=== PATIENT | female | born 1950 | race Caucasian/White ===

== ENCOUNTER → 2017-03-21 | Outpatient (CLI) | payer MEDICARE, OTHER ==
--- NOTE | 2017-03-21 09:56 | US ---
EXAMINATION TYPE: US thyroid st tissue head/neck DATE OF EXAM: 03/21/2017 8:49 AM COMPARISON: NONE CLINICAL HISTORY: E04.1 thyroid nodule. Difficult swallowing GLAND SIZE: Right Lobe: 4.8 x 1.4 x 1.9 cm cm Overall Parenchyma: heterogenous Left Lobe: 5.2 x 1.5 x 1.4 cm Overall Parenchyma: heterogeneous Isthmus Thickness: 0.4 cm NODULES RIGHT: # of nodules measured on right: 3 1. 0.7 X 0.5 x 0.9 cm mixed nodule at the lower pole with well-defined margins; . This nodule is w ider than tall and shows no intranodular vascularity. Prior size: no prior 2. 1.1 X 0.9 x 0.7 cm mixed nodule at the mid pole with well-defined margins; . This nodule is wide r than tall and shows no intranodular vascularity. Prior size: no prior 3. 0.9 X 0.4 x 0.7 cm mixed nodule at the upper pole with well-defined margins; . This nodule is wi crissy than tall and shows intranodular vascularity. Prior size: no prior LEFT: # of nodules measured on left: 1. 0.6 X 0.4 x 0.4 cm isoechoic solid nodule at the lower pole with well-defined margins; . This n odule is wider than tall and shows no intranodular vascularity. Prior size: no prior 2. 0.5 X 0.4 x 0.4 cm mixed nodule at the lower pole with well-defined margins; . This nodule is ro und and shows no intranodular vascularity. Prior size: no prior 3. 0.4 X 0.3 x 0.5 cm solid nodule at the upper pole with well-defined margins; . This nodule is ro und and shows intranodular vascularity. Prior size: no prior ISTHMUS: # of nodules measured in the isthmus: 0 Bilateral neck scanned, no evidence of lymphadenopathy. Thyroid gland is heterogeneous in appearance but within normal limits in size with scattered subcenti meter nodules noted bilaterally. IMPRESSION: Thyroid gland is normal in size with scattered subcentimeter nodules but no concerning greater than 1 cm solid or cystic nodules are evident bilaterally.
== END | disposition home or self-care (01) ==
LOC: RADUSWWP 08:20
PROVIDERS: ATTEND Family Medicine
DX: E04.2 Nontoxic multinodular goiter (principal)
CPT/HCPCS: 76536

== ENCOUNTER 2017-05-09 08:42 | Observation (INO) | payer MEDICARE, OTHER ==
[2017-05-09] MEDS ORDERED: ASPIRIN 81 MG CHEW PO STA (09:03)
[2017-05-09] MEDS ORDERED: LORazepam 1 MG TAB PO STA (09:03)
[2017-05-09] MEDS ORDERED: NITROGLYCERIN SL TABS 0.4 MG TAB SUBLINGUAL STA ×3 (09:03)
[2017-05-09] MEDS ORDERED: IPRATROPIUM-ALBUTEROL 3 ML NEB INHALATION STA (09:04)
--- NOTE | 2017-05-09 09:07 | ED ---
General Adult HPI - General Chief complaint: Chest Pain Stated complaint: Chest Pain Time Seen by Provider: 05/09/17 08:54 Source: patient, RN notes reviewed Mode of arrival: wheelchair Limitations: no limitations - History of Present Illness Initial comments: Patient is a pleasant 66-year-old female presenting to the emergency department complaining of chest discomfort. Onset of symptoms was a couple of weeks ago. Patient complains of sharp discomfort of her sternal region of the chest. There is some radiation towards the back. Patient does have associated dyspnea which is exertional. Patient states she is only able to walk about 10 feet before she gets short of breath. Patient did take her nebulizer without much improvement. Patient is a smoker. Patient does have some associated nausea and sweating. No history of similar symptoms previously. Patient admits that she is very anxious about being possible. Patient is receptive to receiving medication for anxiety. - Related Data Home Medications Medication Instructions Recorded Confirmed Albuterol Nebulized [Ventolin 2.5 mg INHALATION RT-QID PRN 05/09/17 05/09/17 Nebulized] Albuterol Sulfate [Proventil Hfa] 1 - 2 puff INHALATION RT-Q6H PRN 05/09/1711/13 Atorvastatin [Lipitor] 10 mg PO DAILY 05/09/17 05/09/17 Multivitamin/Iron/Folic Acid 1 tab PO DAILY 05/09/17 05/09/17 [Centrum Complete Multivit Tab] Omeprazole [PriLOSEC] 20 mg PO AC-BRKFST 05/09/17 05/09/17 Allergies Allergy/AdvReac Type Severity Reaction Status Date / Time No Known Allergies Allergy Verified 05/09/17 10:21 Review of Systems ROS Statement: Those systems with pertinent positive or pertinent negative responses have been documented in the HPI. ROS Other: All systems not noted in ROS Statement are negative. Constitutional: Denies: fever Eyes: Denies: eye pain ENT: Denies: ear pain Respiratory: Reports: dyspnea Cardiovascular: Reports: chest pain Endocrine: Reports: fatigue Gastrointestinal: Reports: nausea. Denies: abdominal pain Genitourinary: Denies: urgency Musculoskeletal: Denies: arthralgia Skin: Denies: rash Neurological: Denies: weakness Psychiatric: Reports: anxiety Past Medical History Past Medical History: COPD, GERD/Reflux, Hyperlipidemia History of Any Multi-Drug Resistant Organisms: None Reported Past Psychological History: No Psychological Hx Reported Smoking Status: Current every day smoker Past Alcohol Use History: None Reported Past Drug Use History: None Reported General Exam Limitations: no limitations General appearance: alert, in no apparent distress Head exam: Present: atraumatic Eye exam: Present: normal appearance, PERRL, EOMI ENT exam: Present: normal oropharynx Neck exam: Present: normal inspection Respiratory exam: Present: wheezes. Absent: chest wall tenderness Cardiovascular Exam: Present: regular rate, normal rhythm Expanded Peripheral pulses: 2+: Radial (R), Radial (L), Dorsalis Pedis (R), Dorsalis Pedis (L) GI/Abdominal exam: Present: soft. Absent: tenderness Extremities exam: Present: normal inspection. Absent: pedal edema, calf tenderness Neurological exam: Present: alert Psychiatric exam: Present: anxious Skin exam: Present: normal color Course Vital Signs 05/09/17 05/09/17 05/09/17 08:43 09:07 09:40 Temperature 97.8 F 98.5 F Pulse Rate 112 H 99 93 Respiratory 20 26 H Rate Blood Pressure 108/73 O2 Sat by Pulse 98 92 L Oximetry 05/09/17 05/09/17 05/09/17 09:48 09:52 10:08 Temperature 98.5 F 97.7 F Pulse Rate 88 99 90 Respiratory 16 16 Rate Blood Pressure 108/73 110/53 O2 Sat by Pulse 92 L 99 Oximetry 05/09/17 10:25 Temperature 97.9 F Pulse Rate 88 Respiratory 16 Rate Blood Pressure 111/62 O2 Sat by Pulse 97 Oximetry EKG Findings - EKG Comments: EKG Findings:: Normal sinus rhythm 96. AK 114. QRS 86. QT 370. QTc 467. Normal axis. Normal QRS. Inferior ST depression. Medical Decision Making - Medical Decision Making Patient reevaluated and resting comfortably in bed. Patient symptom-free. He should and family updated on results and plan. Case was discussed in detail with Dr. Santiago, who will admit his patient with cardiology consult. - Lab Data Result diagrams: 05/09/17 09:05 05/09/17 09:05 Lab Results 05/09/17 05/09/17 05/09/17 Range/Units 09:05 09:05 09:05 WBC 9.9 (3.8-10.6) k/uL RBC 4.61 (3.80-5.40) m/uL Hgb 15.5 (11.4-16.0) gm/dL Hct 47.8 H (34.0-46.0) % MCV 103.7 H (80.0-100.0) fL MCH 33.7 (25.0-35.0) pg MCHC 32.5 (31.0-37.0) g/dL RDW 12.5 (11.5-15.5) % Plt Count 304 (150-450) k/uL Neutrophils % 51 % Lymphocytes % 36 % Monocytes % 5 % Eosinophils % 3 % Basophils % 1 % Neutrophils # 5.1 (1.3-7.7) k/uL Lymphocytes # 3.5 (1.0-4.8) k/uL Monocytes # 0.5 (0-1.0) k/uL Eosinophils # 0.3 (0-0.7) k/uL Basophils # 0.1 (0-0.2) k/uL Macrocytosis Slight PT (9.0-12.0) sec INR (<1.1) APTT (22.0-30.0) sec D-Dimer (<0.60) mg/L FEU Sodium 141 (137-145) mmol/L Potassium 4.5 (3.5-5.1) mmol/L Chloride 103 (98-107) mmol/L Carbon Dioxide 25 (22-30) mmol/L Anion Gap 13 mmol/L BUN 8 (7-17) mg/dL Creatinine 0.56 (0.52-1.04) mg/dL Est GFR (MDRD) Af Amer >60 (>60 ml/min/1.73 sqM) Est GFR (MDRD) Non-Af >60 (>60 ml/min/1.73 sqM) Glucose 107 H (74-99) mg/dL Calcium 9.9 (8.4-10.2) mg/dL Magnesium 1.9 (1.6-2.3) mg/dL Total Bilirubin 0.7 (0.2-1.3) mg/dL AST 31 (14-36) U/L ALT 32 (9-52) U/L Alkaline Phosphatase 77 (38-126) U/L Total Creatine Kinase 54 (30-135) U/L CK-MB (CK-2) 1.1 (0.0-2.4) ng/mL CK-MB (CK-2) Rel Index 2.0 Troponin I <0.012 (0.000-0.034) ng/mL NT-Pro-B Natriuret Pep pg/mL Total Protein 8.2 (6.3-8.2) g/dL Albumin 4.8 (3.5-5.0) g/dL 05/09/17 05/09/17 Range/Units 09:05 09:05 WBC (3.8-10.6) k/uL RBC (3.80-5.40) m/uL Hgb (11.4-16.0) gm/dL Hct (34.0-46.0) % MCV (80.0-100.0) fL MCH (25.0-35.0) pg MCHC (31.0-37.0) g/dL RDW (11.5-15.5) % Plt Count (150-450) k/uL Neutrophils % % Lymphocytes % % Monocytes % % Eosinophils % % Basophils % % Neutrophils # (1.3-7.7) k/uL Lymphocytes # (1.0-4.8) k/uL Monocytes # (0-1.0) k/uL Eosinophils # (0-0.7) k/uL Basophils # (0-0.2) k/uL Macrocytosis PT 10.1 (9.0-12.0) sec INR 1.0 (<1.1) APTT 26.2 (22.0-30.0) sec D-Dimer 0.43 (<0.60) mg/L FEU Sodium (137-145) mmol/L Potassium (3.5-5.1) mmol/L Chloride (98-107) mmol/L Carbon Dioxide (22-30) mmol/L Anion Gap mmol/L BUN (7-17) mg/dL Creatinine (0.52-1.04) mg/dL Est GFR (MDRD) Af Amer (>60 ml/min/1.73 sqM) Est GFR (MDRD) Non-Af (>60 ml/min/1.73 sqM) Glucose (74-99) mg/dL Calcium (8.4-10.2) mg/dL Magnesium (1.6-2.3) mg/dL Total Bilirubin (0.2-1.3) mg/dL AST (14-36) U/L ALT (9-52) U/L Alkaline Phosphatase (38-126) U/L Total Creatine Kinase (30-135) U/L CK-MB (CK-2) (0.0-2.4) ng/mL CK-MB (CK-2) Rel Index Troponin I (0.000-0.034) ng/mL NT-Pro-B Natriuret Pep 69 pg/mL Total Protein (6.3-8.2) g/dL Albumin (3.5-5.0) g/dL - Radiology Data Radiology results: image reviewed (Chest x-ray shows no acute process) Critical Care Time Critical Care Time: Yes Total Critical Care Time: 31 Disposition Clinical Impression: Unstable angina pectoris Disposition: ADMITTED IP TO THIS [facility] Referrals: Federico Santiago DO [Primary Care Provider] - 1-2 days Decision Time: 11:35
--- NOTE | 2017-05-09 10:06 | XR ---
EXAMINATION TYPE: XR chest 2V DATE OF EXAM: 05/09/2017 COMPARISON: NONE TECHNIQUE: PA and lateral views submitted. HISTORY: Chest pain FINDINGS: The lungs are clear and there is no pneumothorax, pleural effusion, or focal pneumonia. Hyperinflat ion suggests COPD. Hypertrophic change of the spine. No overt failure. IMPRESSION: 1. No acute process. Diffuse COPD noted.
[2017-05-09 10:13] LABS: Basophils # (A) 0.1 k/uL (0-0.2); Basophils % (A) 1 %; CH 34.4; CHCM 33.3; Eosinophils # (A) 0.3 k/uL (0-0.7); Eosinophils % (A) 3 %; HCT 47.8 % (34.0-46.0); HDW 1.99; HGB 15.5 gm/dL (11.4-16.0); Luc # (Auto) 0.34; Luc % (Auto) 3; Lymphocytes # (A) 3.5 k/uL (1.0-4.8); Lymphocytes % (A) 36 %; MCH 33.7 pg (25.0-35.0); MCHC 32.5 g/dL (31.0-37.0); MCV 103.7 fL (80.0-100.0); Macrocytosis Slight; Monocytes # (A) 0.5 k/uL (0-1.0); Monocytes % (A) 5 %; Neutrophils # (A) 5.1 k/uL (1.3-7.7); Neutrophils % (A) 51 %; RBC 4.61 m/uL (3.80-5.40); RDW 12.5 % (11.5-15.5); WBC 9.9 k/uL (3.8-10.6); WBC (Perox) 9.23
[2017-05-09 10:25] LABS: ALT 32 U/L (9-52); AST 31 U/L (14-36); Alkaline Phosphatase 77 U/L (38-126); Anion Gap 13 mmol/L; Blood Urea Nitrogen 8 mg/dL (7-17); Calcium 9.9 mg/dL (8.4-10.2); Carbon Dioxide 25 mmol/L (22-30); Chloride 103 mmol/L (98-107); Glucose 107 mg/dL (74-99); Magnesium 1.9 mg/dL (1.6-2.3); Non-African American GFR(MDRD) >60 (>60 ml/min/1.73 sqM); Partial Thromboplastin Time 26.2 sec (22.0-30.0); Potassium 4.5 mmol/L (3.5-5.1); Prothrombin Time 10.1 sec (9.0-12.0); Sodium 141 mmol/L (137-145); Total Bilirubin 0.7 mg/dL (0.2-1.3); Total Protein 8.2 g/dL (6.3-8.2)
[2017-05-09 10:39] LABS: Creatine Kinase 54 U/L (30-135)
[2017-05-09 10:52] LABS: Creatine Kinase MB 1.1 ng/mL (0.0-2.4); Troponin I <0.012 ng/mL (0.000-0.034)
[2017-05-09] MEDS ORDERED: ALPRAZolam 0.25 MG TAB PO PRN (11:36)
[2017-05-09] MEDS ORDERED: NITROGLYCERIN SL TABS 0.4 MG TAB SUBLINGUAL PRN (11:36)
[2017-05-09] MEDS ORDERED: HEPARIN SODIUM,PORCINE 5,000 UNIT/ML 1 ML VIAL IV ONE (11:36)
[2017-05-09] MEDS ORDERED: HEPARIN SODIUM,PORCINE 5,000 UNIT/ML 1 ML VIAL IV PRN (11:36)
[2017-05-09] MEDS ORDERED: HEPARIN SODIUM,PORCINE/D5W PMX 25,000 UNIT in DEXTROSE/WATER 1 500ML.BAG IV SCH (11:45)
[2017-05-09] MEDS ORDERED: NITROGLYCERIN OINT 1 INCH/GM PACKET TOPICAL SCH (12:00)
[2017-05-09] MEDS ORDERED: ALBUTEROL NEBULIZED 2.5 MG/3 ML INHALATION PRN ×2 (14:39)
[2017-05-09 15:43] VITALS: BMI 24.8
[2017-05-09 16:44] LABS: Creatine Kinase 53 U/L (30-135)
[2017-05-09] MEDS: IPRATROPIUM-ALBUTEROL 3 ML NEB INHALATION SCH ×2 (16:49→19:42)
[2017-05-09 16:57] LABS: Creatine Kinase MB 1.1 ng/mL (0.0-2.4); Troponin I <0.012 ng/mL (0.000-0.034)
--- NOTE | 2017-05-09 17:51 | CONS ---
Mrs. Walker is a 66-year-old female with a history of chronic tobacco use, history of chronic obstructive lung disease with severe dyspnea, who presented with worsening dyspnea as well as right-sided chest discomfort. The discomfort is worse when she is in a certain position. She is quite dyspneic and quite limited in her physical activity. She had some cough recently, but no fever. She underwent cardiac catheterization in [place] about 6 years ago and was told to have mild obstructive disease. She has no peripheral edema, no PND, no orthopnea. She has some dizziness, but no syncope. Her coronary risk factors are remarkable for the smoking and she has history of hyperlipidemia. She is nondiabetic. Her medications at home include: 1. Albuterol. 2. Omeprazole. 3. Atorvastatin 10 mg daily. REVIEW OF SYSTEMS: RESPIRATORY: She has significant obstructive lung disease, chronic tobacco use, and chronic dyspnea on exertion with recent cough. GI: She had a remote history of ulcer, but no recent GI bleeding. : No dysuria or hematuria. NERVOUS: No history of stroke or seizure. PHYSICAL EXAMINATION: A 66-year-old female; alert, moderately dyspneic. Blood pressure 130/80 with a heart in the 90s. HEAD: Normocephalic. EYES: Sclerae anicteric. NECK: Good upstroke. No bruits. No jugular venous distention. LUNGS: With severe decreased air exchange bilaterally. HEART: Regular rate and rhythm. S1, S2. No S3. No rub. ABDOMEN: Soft, nontender. Positive bowel sounds. No organomegaly. EXTREMITIES: No edema. Intact distal pulses. Lab data revealed troponin less than 0.012. BUN and creatinine of 8 and 0.56, potassium 4.5. Hemoglobin of 15.5. EKG revealed sinus mechanism, normal axis and intervals with nonspecific ST-T wave changes. Chest x-ray shows diffuse COPD. IMPRESSION: 1. Chest discomfort, atypical for ischemic heart disease, probably noncardiac appears to be respiratory in status and positional. 2. Severe chronic obstructive lung disease by examination and by history. 3. Chronic tobacco use. 4. Mild coronary artery disease by cardiac catheterization. 5. History of hyperlipidemia. RECOMMENDATIONS: From the cardiac standpoint, I will stop the nitro paste. I will obtain an echocardiogram with Doppler. If her enzymes are negative, then we will stop the heparin. Patient may benefit from a pulmonary evaluation. Once her lung status is stabilized, she may benefit from a stress test that can be done as an outpatient. Thank you for this consult. Will follow with you.
[2017-05-09] MEDS ORDERED: TEMAZEPAM 15 MG CAP PO PRN (20:57)
[2017-05-09] MEDS: HYDROcodone/APAP 5-325MG 1 EACH TAB PO PRN (21:45)
[2017-05-09 22:03] LABS: Creatine Kinase 59 U/L (30-135)
[2017-05-09 22:16] LABS: Creatine Kinase MB 1.3 ng/mL (0.0-2.4); Troponin I <0.012 ng/mL (0.000-0.034)
[2017-05-10] MEDS: IPRATROPIUM-ALBUTEROL 3 ML NEB INHALATION PRN ×2 (00:08→03:43)
[2017-05-10] MEDS: HYDROcodone/APAP 5-325MG 1 EACH TAB PO PRN (03:44)
[2017-05-10] MEDS: IPRATROPIUM-ALBUTEROL 3 ML NEB INHALATION SCH ×2 (06:58→10:26)
[2017-05-10] MEDS ORDERED: PANTOPRAZOLE 40 MG TABLET PO SCH (07:30)
[2017-05-10 07:39] LABS: Mean Platelet Volume 6.9
[2017-05-10 07:48] LABS: Cholesterol 176 mg/dL (<200); HDL Cholesterol 64 mg/dL (40-60); Triglycerides 111 mg/dL (<150)
[2017-05-10] MEDS ORDERED: ACETAMINOPHEN TAB 325 MG TAB PO PRN (08:15)
[2017-05-10 08:25] VITALS: BP 95/60; TEMP 97.8
[2017-05-10] MEDS ORDERED: ASPIRIN 81 MG CHEW PO SCH (09:00)
[2017-05-10] MEDS ORDERED: ASPIRIN 325 MG TAB PO SCH (09:00)
[2017-05-10] MEDS ORDERED: ATORVASTATIN 10 MG TAB PO SCH (09:00)
--- NOTE | 2017-05-10 10:04 | PN ---
Mrs. Walker is a 66-year-old female who presented with symptoms of chest discomfort and dyspnea; however, discomfort was right-sided and respirophasic in pattern. She is feeling much better this morning. She denies any chest pain. Her breathing is better. Her cough persists, but improved. She denies any dizziness, palpitation. She continued to be on aspirin once a day, Lipitor 10 mg daily, heparin, Protonix, temazepam and her updraft. PHYSICAL EXAMINATION: Blood pressure running in the 130s with the heart rate in the 80s. LUNGS: With decreased air exchange and scattered wheezes. HEART: Regular rate and rhythm. S1, S2, no S3, no rub. ABDOMEN: Soft, nontender. EXTREMITIES: No edema. Lab data revealed troponin less than 0.012. Cholesterol 176, LDL of 90. IMPRESSION: 1. Chest discomfort, atypical for ischemic heart disease, probably noncardiac. 2. Chronic obstructive pulmonary disease with exacerbation of chronic obstructive pulmonary disease and chronic tobacco use. 3. Hyperlipidemia. RECOMMENDATION: I will stop her heparin. Will await the result of her echo. I would expect she should be able to be discharged home soon and follow up as an outpatient once her lung status is stabilized to undergo cardiac evaluation. I have discussed those findings with the patient.
[2017-05-10 10:28] VITALS: PULSE 68; RESP 14
--- NOTE | 2017-05-10 11:06 | ECHOF ---
Referral Reason: MEASUREMENTS -------- HEIGHT: 129.5 cm WEIGHT: 55.8 kg BP: 130/83 RVIDd: 3.1 cm (< 3.3) IVSd: 0.9 cm (0.6 - 1.1) LVIDd: 3.3 cm (3.9 - 5.3) LVPWd: 0.9 cm (0.6 - 1.1) IVSs: 1.2 cm LVIDs: 1.7 cm LVPWs: 1.2 cm Ao Diam: 3.1 cm (2.0 - 3.7) AV Cusp: 2.1 cm (1.5 - 2.6) LA Diam: 2.3 cm (2.7 - 3.8) MV EXCURSION: 16.659 mm (> 18.000) MV EF SLOPE: 55 mm/s (70 - 150) EPSS: 0.4 cm MV E Kostas: 0.51 m/s MV DecT: 188 ms MV A Kostas: 0.69 m/s MV E/A Ratio: 0.74 RAP: 5.00 mmHg RVSP: 38.26 mmHg FINDINGS -------- Sinus rhythm. This was a technically difficult study with suboptimal views. Pt difficult due to copd. Images taken from subcoastals. Left ventricular wall thickness is normal. Overall left ventricular systolic function is normal with, an EF between 55 - 60 %. The right ventricle is normal in size and function. The left atrium is normal in size. The right atrium is normal in size. The aortic valve is trileaflet, and appears structurally normal. No aortic stenosis or regurgitation. The mitral valve leaflets are mildly thickened. There is trace mitral regurgitation. Trace tricuspid regurgitation present. The right ventricular systolic pressure, as measured by Doppler, is 38.26mmHg. Pulmonic valve appears structurally normal. The aortic root size is normal. The pericardium is normal. CONCLUSIONS -------- 1. Sinus rhythm. 2. The mitral valve leaflets are mildly thickened. 3. There is trace mitral regurgitation. 4. Trace tricuspid regurgitation present. 5. The right ventricular systolic pressure, as measured by Doppler, is 38.26mmHg. 6. Pulmonic valve appears structurally normal. 7. The aortic root size is normal. 8. The pericardium is normal. 9. This was a technically difficult study with suboptimal views. 10. Pt difficult due to copd. Images taken from subcoastals. 11. Left ventricular wall thickness is normal. 12. Overall left ventricular systolic function is normal with, an EF between 55 - 60 %. 13. The right ventricle is normal in size and function. 14. The left atrium is normal in size. 15. The right atrium is normal in size. 16. The aortic valve is trileaflet, and appears structurally normal. No aortic stenosis or regurgitation. EDUCATION DIRECTOR: Renu Thomas RDCS
[2017-05-10] MEDS ORDERED: MULTIVITAMINS, THERA 1 EACH TAB PO SCH (12:00)
== END 2017-05-10 10:56 | disposition home or self-care (01) ==
LOC: EC 08:42 → 3OBS 11:36
PROVIDERS: ADMIT Family Medicine; ATTEND Family Medicine
DX: R07.9 Chest pain, unspecified (principal); J44.1 Chronic obstructive pulmonary disease with (acute) exacerbation; I20.0 Unstable angina; E78.5 Hyperlipidemia, unspecified; K21.9 Gastro-esophageal reflux disease without esophagitis; I25.10 Atherosclerotic heart disease of native coronary artery without angina pectoris; F17.210 Nicotine dependence, cigarettes, uncomplicated; Z79.899 Other long term (current) drug therapy
CPT/HCPCS: 99291; 36415; 94640 ×4; 94760; 93005; 93306; 85379; 83880; 80061; 80053; 82550; 82553; 83735; 84484; 85025; 85049; 85610; 85730; 71020; G0378 ×2; J1644

== ENCOUNTER → 2018-09-21 | Outpatient (CLI) | payer MEDICARE, OTHER ==
--- NOTE | 2018-09-21 09:50 | MM ---
Reason for exam: screening (asymptomatic). Last mammogram was performed 3 years and 10 months ago. History: Patient is postmenopausal. Family history of breast cancer in mother. Physical Findings: A clinical breast exam by your physician is recommended on an annual basis and results should be correlated with mammographic findings. MG 3D Screening Mammo W/Cad Bilateral CC and MLO view(s) were taken. Prior study comparison: November 25, 2014, bilateral MG screening mammo w CAD. February 12, 2004, bilateral screening mammogram. The breast tissue is heterogeneously dense. This may lower the sensitivity of mammography. Benign appearing bilateral calcifications. No suspicious abnormality. No significant changes when compared with prior studies. ASSESSMENT: Benign, BI-RAD 2 RECOMMENDATION: Routine screening mammogram of both breasts in 1 year.
== END ==
LOC: RADMAMWWP 08:57
PROVIDERS: ATTEND Family Medicine
DX: Z12.31 Encounter for screening mammogram for malignant neoplasm of breast (principal)
CPT/HCPCS: 77063; 77067

== ENCOUNTER → 2019-06-04 | Outpatient (CLI) | payer MEDICARE, OTHER ==
--- NOTE | 2019-06-04 18:33 | CT ---
EXAMINATION TYPE: CT abdomen pelvis wo con DATE OF EXAM: 06/04/2019 COMPARISON: 07/13/2012 HISTORY: 68-year-old female Pt c/o generalized abdomen pain x4 days. Physician suspecting diverticuli tis. CT DLP: 298.80 mGycm. Automated exposure control for dose reduction was used. TECHNIQUE: Contiguous axial scanning of the abdomen and pelvis without IV contrast. Coronal and sagit bassam reconstructions performed. FINDINGS: Are normal size without pericardial effusion. Small hiatal hernia. Emphysematous changes in the lower lungs. No pleural effusion. Noncontrast appearance of the liver, right adrenal gland, spleen, and pancreas show no gross abnormal ity. Stable low-density thickening of the left adrenal gland. Punctate 2 mm nonobstructive right renal calculus. There is mild left-sided pelvIcaliectasis and asymmetric enlargement of the left ureter. There is a 2 mm calculus in the middle third left ureter, axial image 55 and coronal image 41. No dilated small bowel, free fluid, or free air. No mesenteric or retroperitoneal lymphadenopathy. Normal appendix. Oral contrast progressed to the proximal sigmoid. Extensive mid to distal sigmoid di verticulosis without pericolonic inflammatory change seen. Bladder is urine distended. Left-sided pelvic phlebolith. Uterus surgically absent. Neither ovary ladonna vilma seen. No abnormal fluid collection in the pelvis or pelvic lymphadenopathy. Bones: Mild degenerative changes of the hips. Severe endplate deformity of T11 suggestive of an old S chmorl's node, stable from 2011. IMPRESSION: 1. A 2 mm calculus in the middle third left ureter with very mild obstructive uropathy. 2. Extensive mid to distal sigmoid diverticulosis. No convincing evidence for acute diverticulitis.
== END | disposition home or self-care (01) ==
LOC: RADCTMAIN 15:06
PROVIDERS: ATTEND Family Medicine
DX: K57.30 Diverticulosis of large intestine without perforation or abscess without bleeding (principal); N20.1 Calculus of ureter; N13.9 Obstructive and reflux uropathy, unspecified
CPT/HCPCS: 74176

== ENCOUNTER 2019-12-15 13:44 | Inpatient (IN) | payer OTHER, MEDICARE ==
[2019-12-15] MEDS ORDERED: MORPHINE SULFATE 4 MG/ML SYRINGE IV STA (14:15)
[2019-12-15] MEDS ORDERED: SODIUM CHLORIDE 0.9% 500 ML 500 ML IV STA (14:15)
[2019-12-15 14:30] LABS: Basophils # (A) 0.1 k/uL (0-0.2); Basophils % (A) 1 %; Eosinophils # (A) 0.2 k/uL (0-0.7); Eosinophils % (A) 1 %; HCT 45.4 % (34.0-46.0); HGB 14.9 gm/dL (11.4-16.0); Lymphocytes # (A) 3.9 k/uL (1.0-4.8); Lymphocytes % (A) 32 %; MCH 33.8 pg (25.0-35.0); MCHC 32.8 g/dL (31.0-37.0); MCV 103.3 fL (80.0-100.0); Macrocytosis Slight; Monocytes # (A) 0.6 k/uL (0-1.0); Monocytes % (A) 5 %; Neutrophils # (A) 6.9 k/uL (1.3-7.7); Neutrophils % (A) 58 %; Platelet Count 334 k/uL (150-450); RDW 11.9 % (11.5-15.5); WBC 11.9 k/uL (3.8-10.6)
[2019-12-15 14:39] LABS: ALT 16 U/L (4-34); AST 29 U/L (14-36); African American GFR (CKD) >90 (>60 ml/min/1.73 sqM); Albumin 4.8 g/dL (3.5-5.0); Alkaline Phosphatase 74 U/L (38-126); Amylase 62 U/L (30-110); Anion Gap 10 mmol/L; Blood Urea Nitrogen 9 mg/dL (7-17); Calcium 9.9 mg/dL (8.4-10.2); Carbon Dioxide 25 mmol/L (22-30); Chloride 103 mmol/L (98-107); Glucose 130 mg/dL (74-99); Non-African American GFR(CKD) >90 (>60 ml/min/1.73 sqM); Sodium 138 mmol/L (137-145); Total Bilirubin 0.4 mg/dL (0.2-1.3); Total Protein 8.1 g/dL (6.3-8.2)
[2019-12-15 14:45] LABS: INR 0.9 (<1.2); Partial Thromboplastin Time 25.1 sec (22.0-30.0); Prothrombin Time 9.7 sec (9.0-12.0)
[2019-12-15] MEDS ORDERED: HYDROmorphone 0.5 MG/0.5 ML SYRINGE IVP STA (14:45)
--- NOTE | 2019-12-15 14:47 | ED ---
General Adult HPI - General Chief complaint: Abdominal Pain Stated complaint: rt sided abd pain Time Seen by Provider: 12/15/19 14:11 Source: patient, family, RN notes reviewed, old records reviewed Mode of arrival: ambulatory Limitations: no limitations - History of Present Illness Initial comments: 69-year-old female presenting with acute onsets. Abdominal pain and right flank pain. Patient does have history of kidney stones, states this is dissimilar from previous episodes of renal colic. Pain began approximately 2 hours prior to arrival he was sudden in onset. She has additional past medical history of COPD. She denies dysuria or hematuria. She had some episodes of diarrhea, denies any rectal bleeding. No vomiting. No upper abdominal pain. No chest pain or dyspnea. No fever or chills. - Related Data Home Medications Medication Instructions Recorded Confirmed Albuterol Sulfate [Proventil Hfa] 1 - 2 puff INHALATION RT-Q6H PRN 05/09/17 05/09/17 Atorvastatin [Lipitor] 10 mg PO DAILY 05/09/17 05/09/17 Multivitamin/Iron/Folic Acid 1 tab PO DAILY 05/09/17 05/09/17 [Centrum Complete Multivit Tab] Omeprazole [PriLOSEC] 20 mg PO AC-BRKFST 05/09/17 05/09/17 Previous Rx's Medication Instructions Recorded Aspirin 81 mg PO DAILY 05/10/17 Ipratropium-Albuterol Nebulize 3 ml INHALATION RT-QID #100 neb 05/10/17 [Duoneb 0.5 mg-3 mg/3 ml Soln] methylPREDNISolone Dose Pack 4 mg PO DIRECTED #21 package 05/10/17 [Medrol Dose Pack] Cephalexin [Keflex] 500 mg PO Q12HR #20 cap 12/15/19 HYDROcodone/APAP 5-325MG [[place] 1 tab PO Q6HR PRN #12 tab 12/15/19 5-325] Ibuprofen [Motrin] 600 mg PO Q8HR PRN #24 tab 12/15/19 Tamsulosin [Flomax] 0.4 mg PO DAILY #30 cap 12/15/19 Allergies Allergy/AdvReac Type Severity Reaction Status Date / Time No Known Allergies Allergy Verified 12/15/19 13:54 Review of Systems ROS Statement: Those systems with pertinent positive or pertinent negative responses have been documented in the HPI. ROS Other: All systems not noted in ROS Statement are negative. Past Medical History Past Medical History: COPD, GERD/Reflux, Hyperlipidemia, Renal Disease Additional Past Medical History / Comment(s): Kidney stone with surgical removal. History of Any Multi-Drug Resistant Organisms: None Reported Past Surgical History: Cholecystectomy, Hernia Repair, Hysterectomy, Tubal Ligation Additional Past Surgical History / Comment(s): R inguinal hernia repair, kidney stone removal, colonoscopy. Past Anesthesia/Blood Transfusion Reactions: No Reported Reaction Past Psychological History: No Psychological Hx Reported Smoking Status: Current every day smoker - Past Family History Mother Family Medical History: Renal Disease Additional Family Medical History / Comment(s): Mother is 90 yrs old. Father Family Medical History: Cancer Additional Family Medical History / Comment(s): Father of lung cancer at the age of 83yrs. General Exam Limitations: no limitations General appearance: alert, in distress Head exam: Present: atraumatic, normocephalic Eye exam: Present: normal appearance, PERRL ENT exam: Present: normal exam Neck exam: Present: normal inspection. Absent: tenderness, meningismus Respiratory exam: Present: normal lung sounds bilaterally. Absent: respiratory distress, wheezes Cardiovascular Exam: Present: regular rate, normal rhythm GI/Abdominal exam: Present: soft, distended, diminished bowel sounds. Absent: tenderness, guarding, rebound Extremities exam: Present: normal inspection, normal capillary refill, other ( DP Pulses symmetric 2+). Absent: pedal edema, calf tenderness Back exam: Present: normal inspection, full ROM. Absent: tenderness, CVA tenderness (R), CVA tenderness (L), paraspinal tenderness, vertebral tenderness Neurological exam: Present: alert, oriented X3, CN II-XII intact. Absent: motor sensory deficit Psychiatric exam: Present: normal affect, normal mood Skin exam: Present: warm, dry, intact. Absent: cyanosis, diaphoretic Course Vital Signs 12/15/19 12/15/19 12/15/19 13:54 13:56 14:39 Temperature 97.7 F Pulse Rate 84 80 Respiratory 18 20 Rate Blood Pressure 139/76 125/74 O2 Sat by Pulse 99 96 96 Oximetry 12/15/19 12/15/19 12/15/19 14:56 15:00 15:30 Temperature Pulse Rate 83 Respiratory 20 18 Rate Blood Pressure 125/74 131/77 O2 Sat by Pulse 96 97 97 Oximetry 12/15/19 12/15/19 12/15/19 16:00 16:30 17:00 Temperature Pulse Rate Respiratory 18 18 Rate Blood Pressure 123/72 126/78 126/76 O2 Sat by Pulse 97 96 96 Oximetry 12/15/19 12/15/19 17:30 18:00 Temperature Pulse Rate Respiratory Rate Blood Pressure 115/86 100/83 O2 Sat by Pulse 98 Oximetry - Reevaluation(s) Reevaluation #1: 12/15/19 17:24 Patient feeling much, pain has been controlled with Dilaudid and Toradol. No episodes of vomiting. Medical Decision Making - Medical Decision Making 69-year-old female history of kidney stone presenting with signs and symptoms concerning for renal colic. Patient has mild leukocytosis, she has 63 red cells and 57 white cells with rare bacteria. Urine culture is pending. She has a 4 mm stone in the right mid ureter with hydronephrosis. She does receive a dose of IV antibiotics with concern for UTI in the presence of kidney stone. She's given a urine strainer. Patient requires multiple dosing in the emergency department for pain control. She has nausea. I discussed case with urology, Dr. Stevens, will accept this patient for pain control and possible intervention in the morning. She will be NPO after midnight. - Lab Data Result diagrams: 12/15/19 14:10 12/15/19 14:10 Lab Results 12/15/19 12/15/19 12/15/19 Range/Units 14:10 14:10 14:10 WBC 11.9 H (3.8-10.6) k/uL RBC 4.40 (3.80-5.40) m/uL Hgb 14.9 (11.4-16.0) gm/dL Hct 45.4 (34.0-46.0) % MCV 103.3 H (80.0-100.0) fL MCH 33.8 (25.0-35.0) pg MCHC 32.8 (31.0-37.0) g/dL RDW 11.9 (11.5-15.5) % Plt Count 334 (150-450) k/uL Neutrophils % 58 % Lymphocytes % 32 % Monocytes % 5 % Eosinophils % 1 % Basophils % 1 % Neutrophils # 6.9 (1.3-7.7) k/uL Lymphocytes # 3.9 (1.0-4.8) k/uL Monocytes # 0.6 (0-1.0) k/uL Eosinophils # 0.2 (0-0.7) k/uL Basophils # 0.1 (0-0.2) k/uL Macrocytosis Slight PT (9.0-12.0) sec INR (<1.2) APTT (22.0-30.0) sec Sodium 138 (137-145) mmol/L Potassium 4.0 (3.5-5.1) mmol/L Chloride 103 (98-107) mmol/L Carbon Dioxide 25 (22-30) mmol/L Anion Gap 10 mmol/L BUN 9 (7-17) mg/dL Creatinine 0.60 (0.52-1.04) mg/dL Est GFR (CKD-EPI)AfAm >90 (>60 ml/min/1.73 sqM) Est GFR (CKD-EPI)NonAf >90 (>60 ml/min/1.73 sqM) Glucose 130 H (74-99) mg/dL Plasma Lactic Acid Jakob 1.3 (0.7-2.0) mmol/L Calcium 9.9 (8.4-10.2) mg/dL Total Bilirubin 0.4 (0.2-1.3) mg/dL AST 29 (14-36) U/L ALT 16 (4-34) U/L Alkaline Phosphatase 74 (38-126) U/L Total Protein 8.1 (6.3-8.2) g/dL Albumin 4.8 (3.5-5.0) g/dL Amylase 62 (30-110) U/L Lipase 95 (23-300) U/L Urine Color Urine Appearance (Clear) Urine pH (5.0-8.0) Ur Specific Wallace (1.001-1.035) Urine Protein (Negative) Urine Glucose (UA) (Negative) Urine Ketones (Negative) Urine Blood (Negative) Urine Nitrite (Negative) Urine Bilirubin (Negative) Urine Urobilinogen (<2.0) mg/dL Ur Leukocyte Esterase (Negative) Urine RBC (0-5) /hpf Urine WBC (0-5) /hpf Ur Squamous Epith Cells (0-4) /hpf Calcium Oxalate Crystal (None) /hpf Urine Bacteria (None) /hpf Hyaline Casts (0-2) /lpf Urine Mucus (None) /hpf 12/15/19 12/15/19 Range/Units 14:10 14:38 WBC (3.8-10.6) k/uL RBC (3.80-5.40) m/uL Hgb (11.4-16.0) gm/dL Hct (34.0-46.0) % MCV (80.0-100.0) fL MCH (25.0-35.0) pg MCHC (31.0-37.0) g/dL RDW (11.5-15.5) % Plt Count (150-450) k/uL Neutrophils % % Lymphocytes % % Monocytes % % Eosinophils % % Basophils % % Neutrophils # (1.3-7.7) k/uL Lymphocytes # (1.0-4.8) k/uL Monocytes # (0-1.0) k/uL Eosinophils # (0-0.7) k/uL Basophils # (0-0.2) k/uL Macrocytosis PT 9.7 (9.0-12.0) sec INR 0.9 (<1.2) APTT 25.1 (22.0-30.0) sec Sodium (137-145) mmol/L Potassium (3.5-5.1) mmol/L Chloride (98-107) mmol/L Carbon Dioxide (22-30) mmol/L Anion Gap mmol/L BUN (7-17) mg/dL Creatinine (0.52-1.04) mg/dL Est GFR (CKD-EPI)AfAm (>60 ml/min/1.73 sqM) Est GFR (CKD-EPI)NonAf (>60 ml/min/1.73 sqM) Glucose (74-99) mg/dL Plasma Lactic Acid Jakob (0.7-2.0) mmol/L Calcium (8.4-10.2) mg/dL Total Bilirubin (0.2-1.3) mg/dL AST (14-36) U/L ALT (4-34) U/L Alkaline Phosphatase (38-126) U/L Total Protein (6.3-8.2) g/dL Albumin (3.5-5.0) g/dL Amylase (30-110) U/L Lipase (23-300) U/L Urine Color Yellow Urine Appearance Cloudy H (Clear) Urine pH 5.5 (5.0-8.0) Ur Specific Wallace 1.032 (1.001-1.035) Urine Protein 1+ H (Negative) Urine Glucose (UA) Negative (Negative) Urine Ketones Negative (Negative) Urine Blood Moderate H (Negative) Urine Nitrite Negative (Negative) Urine Bilirubin Negative (Negative) Urine Urobilinogen 2.0 (<2.0) mg/dL Ur Leukocyte Esterase Large H (Negative) Urine RBC 63 H (0-5) /hpf Urine WBC 57 H (0-5) /hpf Ur Squamous Epith Cells 2 (0-4) /hpf Calcium Oxalate Crystal Many H (None) /hpf Urine Bacteria Rare H (None) /hpf Hyaline Casts 1 (0-2) /lpf Urine Mucus Occasional H (None) /hpf Disposition Clinical Impression: Calculus of kidney, Hydronephrosis, Renal colic on right side Disposition: ADMITTED IP TO THIS [facility] Condition: Stable Instructions (If sedation given, give patient instructions): Kidney Stones (ED), Renal Colic (ED) Prescriptions: Tamsulosin [Flomax] 0.4 mg PO DAILY #30 cap Cephalexin [Keflex] 500 mg PO Q12HR #20 cap Ibuprofen [Motrin] 600 mg PO Q8HR PRN #24 tab PRN Reason: Pain HYDROcodone/APAP 5-325MG [[place] 5-325] 1 tab PO Q6HR PRN #12 tab PRN Reason: Pain Is patient prescribed a controlled substance at d/c from ED?: No Referrals: Cabrera Stevens MD [STAFF PHYSICIAN] - 1-2 days Time of Disposition: 18:33 Decision to Admit Reason: Admit from EC Decision Date: 12/15/19 Decision Time: 18:33
[2019-12-15 14:55] LABS: Appearance,Urine Cloudy (Clear); Bacteria,Urine Rare /hpf; Bilirubin,Urine Negative (Negative); Blood,Urine Moderate (Negative); Calcium Oxalate Crystals,Urine Many /hpf; Color,Urine Yellow; Glucose,Urine (UA) Negative (Negative); Hyaline Casts,Urine 1 /lpf (0-2); Ketones,Urine Negative (Negative); Leukocyte Esterase,Urine Large (Negative); Mucus,Urine Occasional /hpf; Nitrite,Urine Negative (Negative); PH, Urine 5.5 (5.0-8.0); Protein,Urine 1+ (Negative); RBC,Urine 63 /hpf (0-5); Specific Gravity,Urine 1.032 (1.001-1.035); Squamous Epithelial Cell,Urine 2 /hpf (0-4); WBC,Urine 57 /hpf (0-5)
--- NOTE | 2019-12-15 15:32 | XR ---
KUB HISTORY: Abdominal pain Frontal KUB submitted on 3 images Correlation to prior KUB 07/19/2012 Surgical clips present right upper quadrant. Lung bases are clear. There is no evident bowel obstruct ion or pneumoperitoneum. Bone mineralization is normal. Probable vascular calcification within the pe lvis. IMPRESSION: No acute abnormality.
--- NOTE | 2019-12-15 16:00 | CT ---
EXAMINATION TYPE: CT abdomen pelvis wo con DATE OF EXAM: 12/15/2019 COMPARISON: CT 06/04/2019 HISTORY: Rt flank pain, hx renal stones. CT DLP: 392.5 mGycm Automated exposure control for dose reduction was used. TECHNIQUE: Helical acquisition of images from the lung bases through the pelvis. FINDINGS: Lack of intravenous contrast could compromise sensitivity LUNG BASES: Basilar emphysematous changes are again noted. Posterior diaphragmatic eventration is aga in seen. There may be a small hiatal hernia. AORTA: No significant abnormality is appreciated. There are atheromatous changes present. LIVER/GB: Liver is enlarged. Patient is post cholecystectomy. PANCREAS: No significant abnormality is seen. SPLEEN: No significant abnormality is seen. ADRENALS: No significant abnormality is seen. KIDNEYS: There is right hydronephrosis. Perinephric fluid is present, there is right hydroureter. The level of the mid ureter there is a calcification measuring approximately 4 mm in size REPRODUCTIVE ORGANS: Not seen, postop changes. URINARY BLADDER: No significant abnormality is seen. BOWEL: Extensive diverticular changes noted in the sigmoid colon. FREE AIR: No Free Air is visible. ASCITES: None visible. PELVIC ADENOPATHY: None visualized. RETROPERITONEAL ADENOPATHY: No Retroperitoneal Adenopathy visible. OSSEOUS STRUCTURES: No significant abnormality is seen. IMPRESSION: OBSTRUCTIVE RIGHT URETERAL CALCULUS. DIVERTICULOSIS. NONCONTRAST EXAM. Postop change. Hepatomegaly.
[2019-12-15] MEDS ORDERED: KETOROLAC 30 MG/ML 1 ML VIAL IVP STA (16:08)
[2019-12-15] MEDS ORDERED: cefTRIAXone IN SWFI 1,000 MG/10 ML SYRINGE IVP STA (16:17)
[2019-12-15] MEDS ORDERED: HYDROcodone/APAP 5-325MG 1 EACH TAB PO STA (17:22)
[2019-12-15] MEDS ORDERED: IBUPROFEN 600 MG TAB PO STA (17:22)
[2019-12-15] MEDS ORDERED: TAMSULOSIN 0.4 MG CAP.ER.24H PO STA (17:43)
[2019-12-15] MEDS ORDERED: ACETAMINOPHEN TAB 325 MG TAB PO PRN (18:30)
[2019-12-15] MEDS ORDERED: NALOXONE 0.4 MG/ML 1 ML VIAL IV PRN (18:30)
[2019-12-15] MEDS ORDERED: HYDROmorphone 0.5 MG/0.5 ML SYRINGE IVP PRN (18:30)
[2019-12-15] MEDS ORDERED: ONDANSETRON 4 MG/2 ML VIAL IVP PRN (18:30)
[2019-12-15 20:40] VITALS: RESP 16
[2019-12-15] MEDS: SODIUM CHLORIDE 0.9% 1,000 ML IV SCH (21:28)
[2019-12-15] MEDS: KETOROLAC 30 MG/ML 1 ML VIAL IVP PRN (22:30)
[2019-12-16 04:40] VITALS: BP 94/59; PULSE 72; TEMP 97.8
[2019-12-16] MEDS ORDERED: TAMSULOSIN 0.4 MG CAP.ER.24H PO SCH (08:30)
[2019-12-16] MEDS: SODIUM CHLORIDE 0.9% 1,000 ML IV SCH (09:11)
[2019-12-16] MEDS: KETOROLAC 30 MG/ML 1 ML VIAL IVP PRN (09:11)
--- NOTE | 2019-12-16 10:08 | P.GSHP ---
History of Present Illness H&P Date: 12/16/19 Chief Complaint: Right flank pain The patient is a 69-year-old white female with a history of urolithiasis. Yesterday morning, she experienced acute onset of sharp right lower quadrant abdominal pain, radiating to the right flank. This was associated with nausea and vomiting. A computed tomography scan showed evidence of right hydronephrosis due to a 4 mm right mid ureteral calculus. She is feeling better this morning. - Constitutional Constitutional: Denies chills, Denies fever - Cardiovascular Cardiovascular: Denies chest pain - Respiratory Respiratory: Denies dyspnea - Gastrointestinal Gastrointestinal: Reports nausea, Reports vomiting - Genitourinary (Female) Genitourinary: Reports flank pain, Reports kidney stones, Denies dysuria, Denies hematuria Past Medical History Past Medical History: COPD, GERD/Reflux, Hyperlipidemia, Renal Disease Additional Past Medical History / Comment(s): Ureteroscopic removal of left ureteral calculus in 2011, diverticulosis History of Any Multi-Drug Resistant Organisms: None Reported Past Surgical History: Cholecystectomy, Hernia Repair, Hysterectomy, Tubal Ligation Additional Past Surgical History / Comment(s): R inguinal hernia repair, kidney stone removal, colonoscopy. Depression. Infection left eye on tuesday12/12/19 Past Anesthesia/Blood Transfusion Reactions: No Reported Reaction Past Psychological History: No Psychological Hx Reported Additional Psychological History / Comment(s): Pt resides with her spouse. She is independent other than she has not driven in 10 yrs. Her spouse is retired and drives her places. Smoking Status: Current every day smoker Past Alcohol Use History: None Reported Additional Past Alcohol Use History / Comment(s): Pt states she started smoking in 1973 and has quit many times. She is currently smoking lightly-sometimes 1 cigarette a day, if stressed she smokes more. Past Drug Use History: None Reported - Past Family History Mother Family Medical History: Renal Disease Additional Family Medical History / Comment(s): Mother is 90 yrs old. Father Family Medical History: Cancer Additional Family Medical History / Comment(s): Father of lung cancer at the age of 83yrs. Medications and Allergies Home Medications Medication Instructions Recorded Confirmed Type Atorvastatin [Lipitor] 10 mg PO HS 05/09/17 12/15/19 History Multivitamin/Iron/Folic Acid 1 tab PO DAILY 05/09/17 12/15/19 History [Centrum Complete Multivit Tab] Omeprazole [PriLOSEC] 20 mg PO AC-BRKFST 05/09/17 12/15/19 History Aspirin 81 mg PO DAILY 05/10/17 12/15/19 Rx Albuterol Sulfate [Ventolin HFA] 2 puff INHALATION RT-Q4H PRN 12/15/19 12/15/19 History Cephalexin [Keflex] 500 mg PO Q12HR #20 cap 12/15/19 Rx Fluticasone/Vilanterol [Breo 1 puff INHALATION RT-DAILY 12/15/19 12/15/19 History Ellipta 200-25 Mcg INH] HYDROcodone/APAP 5-325MG [[place] 1 tab PO Q6HR PRN #12 tab 12/15/19 Rx 5-325] Ibuprofen [Motrin] 600 mg PO Q8HR PRN #24 tab 12/15/19 Rx Loratadine [Claritin] 10 mg PO DAILY 12/15/19 12/15/19 History Tamsulosin [Flomax] 0.4 mg PO DAILY #30 cap 12/15/19 Rx Acyclovir 800 mg PO TID 12/16/19 12/16/19 History Ganciclovir [Zirgan] 1 applicate TOPICAL Q8HR 12/16/19 12/16/19 History Allergies Allergy/AdvReac Type Severity Reaction Status Date / Time No Known Allergies Allergy Verified 12/15/19 20:00 Surgical - Exam Vital Signs Temp Pulse Resp BP Pulse Ox 97.7 F 84 18 139/76 99 12/15/19 13:54 12/15/19 13:54 12/15/19 13:54 12/15/19 13:54 12/15/19 13:54 - General well developed, well nourished, no distress - Respiratory normal respiratory effort - Abdomen Abdomen: soft, non tender, no guarding, no rigid, no rebound - Psychiatric oriented to time, oriented to person, oriented to place, speech is normal, memory intact Results - Labs 12/15/19 14:10 12/15/19 14:10 Abnormal Lab Results - Last 24 Hours (Table) 12/15/19 12/15/19 12/15/19 Range/Units 14:10 14:10 14:38 WBC 11.9 H (3.8-10.6) k/uL MCV 103.3 H (80.0-100.0) fL Glucose 130 H (74-99) mg/dL Urine Appearance Cloudy H (Clear) Urine Protein 1+ H (Negative) Urine Blood Moderate H (Negative) Ur Leukocyte Esterase Large H (Negative) Urine RBC 63 H (0-5) /hpf Urine WBC 57 H (0-5) /hpf Calcium Oxalate Crystal Many H (None) /hpf Urine Bacteria Rare H (None) /hpf Urine Mucus Occasional H (None) /hpf Microbiology - Last 24 Hours (Table) 12/15/19 14:38 Urine Culture - Preliminary Urine,Voided Diabetes panel 12/15/19 Range/Units 14:10 Sodium 138 (137-145) mmol/L Potassium 4.0 (3.5-5.1) mmol/L Chloride 103 (98-107) mmol/L Carbon Dioxide 25 (22-30) mmol/L BUN 9 (7-17) mg/dL Creatinine 0.60 (0.52-1.04) mg/dL Glucose 130 H (74-99) mg/dL Calcium 9.9 (8.4-10.2) mg/dL AST 29 (14-36) U/L ALT 16 (4-34) U/L Alkaline Phosphatase 74 (38-126) U/L Total Protein 8.1 (6.3-8.2) g/dL Albumin 4.8 (3.5-5.0) g/dL Calcium panel 12/15/19 Range/Units 14:10 Calcium 9.9 (8.4-10.2) mg/dL Albumin 4.8 (3.5-5.0) g/dL Pituitary panel 12/15/19 Range/Units 14:10 Sodium 138 (137-145) mmol/L Potassium 4.0 (3.5-5.1) mmol/L Chloride 103 (98-107) mmol/L Carbon Dioxide 25 (22-30) mmol/L BUN 9 (7-17) mg/dL Creatinine 0.60 (0.52-1.04) mg/dL Glucose 130 H (74-99) mg/dL Calcium 9.9 (8.4-10.2) mg/dL Adrenal panel 12/15/19 Range/Units 14:10 Sodium 138 (137-145) mmol/L Potassium 4.0 (3.5-5.1) mmol/L Chloride 103 (98-107) mmol/L Carbon Dioxide 25 (22-30) mmol/L BUN 9 (7-17) mg/dL Creatinine 0.60 (0.52-1.04) mg/dL Glucose 130 H (74-99) mg/dL Calcium 9.9 (8.4-10.2) mg/dL Total Bilirubin 0.4 (0.2-1.3) mg/dL AST 29 (14-36) U/L ALT 16 (4-34) U/L Alkaline Phosphatase 74 (38-126) U/L Total Protein 8.1 (6.3-8.2) g/dL Albumin 4.8 (3.5-5.0) g/dL - Imaging Abdominal x-ray: report reviewed, image reviewed CT scan - abdomen: report reviewed, image reviewed Assessment and Plan (1) Calculus of ureter Current Visit: Yes Status: Acute Code(s): N20.1 - CALCULUS OF URETER SNOMED Code(s): 41038993 (2) Hydronephrosis with renal and ureteral calculous obstruction Current Visit: Yes Status: Acute Code(s): N13.2 - HYDRONEPHROSIS WITH RENAL AND URETERAL CALCULOUS OBSTRUCTION SNOMED Code(s): 753533390 Plan: I had a lengthy discussion with Mrs. Walker and her family regarding the CT scan findings. The right perinephric fluid may be the result of a ruptured fornix. I explained to her that a 4 mm mid ureteral calculus has a 50-60% chance of spontaneous passage. Options at this time medical expulsion therapy versus ureteroscopy with laser lithotripsy. She has elected to be discharged home and be treated with medical expulsion therapy. She is aware that ureteroscopy will be recommended if she develops intractable symptoms. She will be discharged home and follow-up with Dr. Ramirez in 1-2 weeks. She was instructed to contact our office if her symptoms worsen. Time with Patient: Greater than 30
== END 2019-12-16 10:59 | disposition home or self-care (01) | DRG 694 ==
LOC: EC 13:44 → 5NMEDONC 18:30
PROVIDERS: ADMIT Urology; ATTEND Urology
DX: N13.2 Hydronephrosis with renal and ureteral calculous obstruction (principal); E78.5 Hyperlipidemia, unspecified; K21.9 Gastro-esophageal reflux disease without esophagitis; F17.200 Nicotine dependence, unspecified, uncomplicated; J44.9 Chronic obstructive pulmonary disease, unspecified; Z79.82 Long term (current) use of aspirin; Z79.899 Other long term (current) drug therapy; Z80.1 Family history of malignant neoplasm of trachea, bronchus and lung; Z87.442 Personal history of urinary calculi; Z90.710 Acquired absence of both cervix and uterus; Z90.49 Acquired absence of other specified parts of digestive tract
CPT/HCPCS: 36415; 74018; 74176; 80053; 81001; 82150; 83605; 83690; 85025; 85610; 85730; 87086; 96374; 96375; 99285

== ENCOUNTER → 2020-06-03 | Outpatient (CLI) | payer MEDICARE, OTHER ==
--- NOTE | 2020-06-03 09:16 | CT ---
EXAMINATION TYPE: CT abdomen pelvis wo con DATE OF EXAM: 06/03/2020 COMPARISON: 12/15/2019 HISTORY: Abn US, hydronephrosis CT DLP: 256.6 mGycm Automated exposure control for dose reduction was used. TECHNIQUE: Helical acquisition of images was performed from the lung bases through the pelvis. FINDINGS: LUNG BASES: Basilar emphysematous changes are again noted. Posterior diaphragmatic eventration is aga in seen. There may be a small hiatal hernia. LIVER/GB: Postcholecystectomy changes noted. Liver prominent in size but homogeneous. PANCREAS: No significant abnormality is seen. SPLEEN: No significant abnormality is seen. ADRENALS: No significant abnormality is seen. KIDNEYS: There is mild to moderate left hydronephrosis to the level of the UPJ. No definite calcifica tions are seen. Tortuosity of the proximal left ureter noted. Within the pelvis or suspicion for a di stal left ureteral calculus measuring 3.5 mm in diameter on axial image 85 at the level of the upper pelvis. Ureter appears markedly tortuous in its course. No renal calculi on the right noted. No hydronephrosis on the right. URINARY BLADDER: No significant abnormality is seen. ADENOPATHY: None visualized. OSSEOUS STRUCTURES: Hypertrophic and degenerative change of the vertebral column sclerotic density i nvolving the left femoral head likely related to bone. BOWEL: Bowel gas pattern nonspecific. Diverticulosis colon. Appendix appears normal. No diagnostic e vidence of obstruction. OTHER: Atherosclerotic change of the aorta. Correlate for previous hysterectomy. IMPRESSION: 1. Mild to moderate left hydronephrosis secondary to a distal left ureteral calculus in the upper pel vis measuring 3.5 mm in diameter. 2. Limited exam of the bowel abdominal viscera due to lack of contrast. 3. Diverticulosis. 4. Liver is prominent in size correlate for hepatomegaly. 5. Correlate for COPD
== END | disposition home or self-care (01) ==
LOC: RADCTMAIN 07:13
PROVIDERS: ATTEND Family Medicine
DX: N13.2 Hydronephrosis with renal and ureteral calculous obstruction (principal); K57.30 Diverticulosis of large intestine without perforation or abscess without bleeding
CPT/HCPCS: 74176

== ENCOUNTER → 2020-08-05 | Outpatient (CLI) | payer MEDICARE, OTHER ==
--- NOTE | 2020-08-05 12:41 | US ---
EXAMINATION TYPE: US kidneys/renal and bladder DATE OF EXAM: 08/05/2020 COMPARISON: CT June 03, 2020 CLINICAL HISTORY: Left Hydronephrosis N13.30. h/o left hydro, lithotripsy in May EXAM MEASUREMENTS: Right Kidney: 11.7 x 4.0 x 4.1 cm Left Kidney: 10.4 x 4.4 x 4.1 cm Right Kidney: Cyst upper pole, unchanged from previous= 1.3 x 1.0 x 1.0 cm Left Kidney: Possible calculi scattered within lower pole, 3mm in size/ mildly dilated renal pelvis= 0.8 cm Bladder: wnl Bilateral Jets seen: Yes Right kidney shows a 1.0 cm thin-walled cyst upper pole level. Asymmetric enlargement right kidney re demonstrated. Bladder satisfactorily distended with visualization of bilateral distal ureter jets. Mi ld fullness left renal pelvis without calyceal dilatation significantly improved from prior CT. Techn ologist junior some nonshadowing hyperechoic foci, new nonobstructing renal calculi not excluded. IMPRESSION: Marked interval improvement in left-sided hydronephrosis after lithotripsy.
== END | disposition home or self-care (01) ==
LOC: RADUSWWP 12:03
PROVIDERS: ATTEND Urology
DX: N13.30 Unspecified hydronephrosis (principal); Z98.890 Other specified postprocedural states
CPT/HCPCS: 76770

== ENCOUNTER → 2021-07-15 | Outpatient (CLI) | payer MEDICARE, OTHER ==
--- NOTE | 2021-07-15 09:44 | XR ---
EXAMINATION TYPE: XR chest 2V DATE OF EXAM: 07/15/2021 COMPARISON: 05/09/2017 HISTORY: Shortness of breath TECHNIQUE: Frontal and lateral views of the chest are obtained. FINDINGS: Scattered senescent parenchymal changes noted. Hyperinflation compatible with COPD. No evidence for infiltrate. No evidence for atelectasis. Heart size is stable. Mediastinal structures are stable and grossly unremarkable. No evidence for hilar prominence. Degenerative changes dorsal spine. IMPRESSION: 1. No evidence for acute pulmonary disease.
== END | disposition home or self-care (01) ==
LOC: RADXRMAIN 08:51
PROVIDERS: ATTEND Family Medicine
DX: J44.9 Chronic obstructive pulmonary disease, unspecified (principal)
CPT/HCPCS: 71046

== ENCOUNTER → 2023-03-16 | Outpatient (CLI) | payer MEDICARE, OTHER ==
--- NOTE | 2023-03-16 11:38 | MM ---
Reason for Exam: Screening (asymptomatic). Last mammogram was performed 4 year(s) and 6 month(s) ago. Patient History: Menarche at age 14. First Full-Term at age 17. Left ovary removed at age 27. Hysterectomy at age 27. Postmenopausal. Mother had breast cancer at or over age 50. Risk Values: Jenelle 5 year model risk: 3.2%. NCI Lifetime model risk: 8.8%. Prior Study Comparison: 02/12/2004 Bilateral Screening Mammogram, [facility]. 11/25/2014 Bilateral Screening Mammogram, [facility]. 09/21/2018 Bilateral Screening Mammogram, [facility]. Tissue Density: There are scattered fibroglandular densities. Findings: Analyzed By CAD. There is no suspicious group of microcalcifications or new suspicious mass in either breast. Benign calcifications within the right breast. Overall Assessment: Benign, BI-RAD 2 Management: Screening Mammogram of both breasts in 1 year. A clinical breast exam by your physician is recommended on an annual basis and results should be correlated with mammographic findings. Electronically signed and approved by: Jovan Giordano D.O.
== END | disposition home or self-care (01) ==
LOC: RADMAMWWP 07:44
PROVIDERS: ATTEND Family Medicine
DX: Z12.31 Encounter for screening mammogram for malignant neoplasm of breast (principal); Z78.0 Asymptomatic menopausal state; Z80.3 Family history of malignant neoplasm of breast
CPT/HCPCS: 77063; 77067

== ENCOUNTER 2023-09-18 08:52 | Emergency (ER) | payer MEDICARE, OTHER ==
[2023-09-18 09:04] VITALS: TEMP 98.6
[2023-09-18] MEDS ORDERED: KETOROLAC 15 MG/ML 1 ML VIAL IVP STA (09:29)
--- NOTE | 2023-09-18 09:39 | ED ---
General Adult HPI - General Chief complaint: Back Pain/Injury Stated complaint: Back Pain Time Seen by Provider: 09/18/23 09:06 Source: patient Mode of arrival: ambulatory Limitations: no limitations - History of Present Illness Initial comments: 73-year-old female with past medical history significant for COPD presents to the emergency department with a chief complaint of mid back pain. Patient reports that she's had mid to upper back pain for the last month. She reports that it has progressively gotten worse passing her to feel short of breath. She denies any injury or trauma. She denies any known fevers however she felt very chilled last night. She is also complaining of accompanying diarrhea. She denies any chest pain, palpitations, abdominal pain. Patient is a former smoker. She was recently given antibiotics for his symptoms by her primary care however she is unsure of what the antibiotic are for. - Related Data Home Medications Medication Instructions Recorded Confirmed Atorvastatin [Lipitor] 10 mg PO HS 05/09/17 12/15/19 Multivitamin/Iron/Folic Acid 1 tab PO DAILY 05/09/17 12/15/19 [Centrum Complete Multivit Tab] Omeprazole [PriLOSEC] 20 mg PO AC-BRKFST 05/09/17 12/15/19 Albuterol Sulfate [Ventolin HFA] 2 puff INHALATION RT-Q4H PRN 12/15/19 12/15/19 Fluticasone/Vilanterol [Breo 1 puff INHALATION RT-DAILY 12/15/19 12/15/19 Ellipta 200-25 Mcg INH] Loratadine [Claritin] 10 mg PO DAILY 12/15/19 12/15/19 Acyclovir 800 mg PO TID 12/16/19 12/16/19 Ganciclovir [Zirgan] 1 applicate TOPICAL Q8HR 12/16/19 12/16/19 Previous Rx's Medication Instructions Recorded Aspirin 81 mg PO DAILY 05/10/17 Cephalexin [Keflex] 500 mg PO Q12HR #20 cap 12/15/19 HYDROcodone/APAP 5-325MG [Provencal 1 tab PO Q6HR PRN #12 tab 12/15/19 5-325] Ibuprofen [Motrin] 600 mg PO Q8HR PRN #24 tab 12/15/19 Tamsulosin [Flomax] 0.4 mg PO DAILY #30 cap 12/15/19 Ciprofloxacin HCl [Cipro] 500 mg PO Q12HR #10 tablet 12/16/19 Hydrocodone/Acetaminophen [Provencal 1 - 2 each PO Q4HR PRN #12 tab 12/16/19 5-325] Tamsulosin [Flomax] 0.4 mg PO DAILY #30 cap 12/16/19 Potassium Chloride ER [K-Dur 20] 20 meq PO DAILY #5 tab 09/18/23 Allergies Allergy/AdvReac Type Severity Reaction Status Date / Time No Known Allergies Allergy Verified 09/18/23 08:59 Review of Systems ROS Statement: Those systems with pertinent positive or pertinent negative responses have been documented in the HPI. ROS Other: All systems not noted in ROS Statement are negative. Past Medical History Past Medical History: COPD, GERD/Reflux, Hyperlipidemia, Renal Disease Additional Past Medical History / Comment(s): Ureteroscopic removal of left ureteral calculus in 2011, diverticulosis History of Any Multi-Drug Resistant Organisms: None Reported Past Surgical History: Cholecystectomy, Hernia Repair, Hysterectomy, Tubal Ligation Additional Past Surgical History / Comment(s): R inguinal hernia repair, kidney stone removal, colonoscopy. Depression. Infection left eye on tuesday12/12/19 Past Anesthesia/Blood Transfusion Reactions: No Reported Reaction Past Psychological History: No Psychological Hx Reported Smoking Status: Never smoker Past Alcohol Use History: None Reported Past Drug Use History: None Reported - Past Family History Mother Family Medical History: Renal Disease Additional Family Medical History / Comment(s): Mother is 90 yrs old. Father Family Medical History: Cancer Additional Family Medical History / Comment(s): Father of lung cancer at the age of 83yrs. General Exam - General Exam Comments Initial Comments: General: Alert, in no acute distress Head: atraumatic normocephalic. Eyes PERRL, EOMI intact, mucous membranes moist Respiratory: Lungs clear to auscultation bilaterally, conversationally dyspneic, tachypneic Cardiovascular: Tachycardic Abdominal: Soft without guarding or rebound Extremities: Normal inspection with full range of motion and normal capillary refill Neuroogic: alert and oriented 3, CN II-XII intact, able to ambulate with steady gait Skin: warm dry and intact with normal color Limitations: no limitations Course Vital Signs 09/18/23 09/18/23 09/18/23 08:53 10:17 12:05 Temperature 98.6 F Pulse Rate 114 H 101 H 98 Respiratory 18 24 20 Rate Blood Pressure 125/76 105/55 110/76 O2 Sat by Pulse 94 L 95 96 Oximetry - Reevaluation(s) Reevaluation #1: 09/18/23 12:00 Patient reevaluated. Patient aware awaiting laboratory studies prior to receiving CT evaluation. Reevaluation #2: 09/18/23 12:19 patient reevaluated. Patient updated on all results including negative CT scan. She is agreeable with the plan for discharge home. EKG Findings - EKG Comments: EKG Findings:: I interpreted the following: EKG performed at 09:41 97 bpm normal sinus rhythm. DC interval 143, QRS duration 91, QT/QTc 352/407 Medical Decision Making - Medical Decision Making Was pt. sent in by a medical professional or institution ([facility], [facility], urgent care, hospital, or care home...) When possible be specific @ -[No] Did you speak to anyone other than the patient for history (EMS, parent, family, police, friend...)? What history was obtained from this source @ - Did you review nursing and triage notes (agree or disagree)? Why? @ -[I reviewed and agree with nursing and triage notes] Were old charts reviewed (outside hosp., previous admission, EMS record, old EKG, old radiological studies, urgent care reports/EKG's, care home records)? Report findings @ -[No old charts were reviewed] Differential Diagnosis (chest pain, altered mental status, abdominal pain women, abdominal pain men, vaginal bleeding, weakness, fever, dyspnea, syncope, headach e, dizziness, GI bleed, back pain, seizure, CVA, palpatations, mental health, musculoskeletal)? @ -[not applicable] EKG interpreted by me (3pts min.). @ -[As above] X-rays interpreted by me (1pt min.). @ -[None done] CT interpreted by me (1pt min.). @ -[None done] U/S interpreted by me (1pt. min.). @ -[None done] What testing was considered but not performed or refused? (CT, X-rays, U/S, labs)? Why? @ -[None] What meds were considered but not given or refused? Why? @ -[None] Did you discuss the management of the patient with other professionals (professionals i.e. , PA, [facility], lab, RT, psych nurse, criminal justice social worker, line manager, teacher, first aid officer, piano case and bench assembler)? Give summary @ -[No] Was smoking cessation discussed for >3mins.? @ -[No] Was critical care preformed (if so, how long)? @ -[No] Were there social determinants of health that impacted care today? How? (Homelessness, low income, unemployed, alcoholism, drug addiction, transportation, low edu. Level, literacy, decrease access to med. care, [facility], rehab)? @ -[No] Was there de-escalation of care discussed even if they declined (Discuss DNR or withdrawal of care, Hospice)? DNR status @ -[No] What co-morbidities impacted this encounter? (DM, HTN, Smoking, COPD, CAD, Cancer, CVA, ARF, Chemo, Hep., AIDS, mental health diagnosis, sleep apnea, morbid obesity)? @ -[None] Was patient admitted / discharged? Hospital course, mention meds given and route, prescriptions, significant lab abnormalities, going to OR and other pertinent info. @ Discharge. This is a pleasant 73-year-old female presents the emergency department with upper back pain. Patient had thorough history and physical exam performed. Initial vital signs oxygen saturation is 94% and HR 110's, . Lungs clear to auscultation bilaterally. Abdomen soft and nontender. Patient is afebrile in the course in the ED. Patient had laboratory studies which revealed WBC 16.6, hemoglobin 13.0 coagulation studies unremarkable sodium 133, potassium 3.2 BUN 10, creatinine 0 point 0.9 magnesium: Negative. Urinalysis is contaminated. Covid positive. I interpreted the following: Chest x-ray does not reveal any pleural consolidation. There is mild COPD changes. CT negative for pulmonary embolism. I discussed results in detail with the patient verbalized understanding all questions were addressed. She is agreeable with the plan for discharge home with recommended close follow-up with PCP in 1-2 days. She'll be given oral potassium while in the ED and prescription for potassium. She be provided Lidoderm patch for her upper back. Patient discharged in stable condition. Case discussed with Dr. Wild ECP who agrees with plan of care Undiagnosed new problem with uncertain prognosis? @ -[No] Drug Therapy requiring intensive monitoring for toxicity (Heparin, Nitro, Insu rox, Cardizem)? @ -[No] Were any procedures done? @ -[No] Diagnosis/symptom? @ -Mid-back Pain - COVID 19 Acute, or Chronic, or Acute on Chronic? @ -Acute Uncomplicated (without systemic symptoms) or Complicated (systemic symptoms)? @ -Uncomplicated Side effects of treatment? @ -[No] Exacerbation, Progression, or Severe Exacerbation? @ -[No] Poses a threat to life or bodily function? How? (Chest pain, [place], [place], pneumonia, PE, COPD, DKA, ARF, appy, cholecystitis, CVA, Diverticulitis, Homicidal, Suicidal, threat to staff... and all critical care pts) @ -Low likelihood - Lab Data Result diagrams: 09/18/23 09:32 09/18/23 09:32 Lab Results 09/18/23 09/18/23 09/18/23 Range/Units 09:32 09:32 09:32 WBC 16.6 H (3.8-10.6) k/uL RBC 3.88 (3.80-5.40) m/uL Hgb 13.0 (11.4-16.0) gm/dL Hct 38.3 (34.0-46.0) % MCV 98.8 (80.0-100.0) fL MCH 33.6 (25.0-35.0) pg MCHC 34.0 (31.0-37.0) g/dL RDW 12.7 (11.5-15.5) % Plt Count 282 (150-450) k/uL MPV 7.3 Neutrophils % 86 % Lymphocytes % 8 % Monocytes % 4 % Eosinophils % 0 % Basophils % 0 % Neutrophils # 14.3 H (1.3-7.7) k/uL Lymphocytes # 1.4 (1.0-4.8) k/uL Monocytes # 0.6 (0-1.0) k/uL Eosinophils # 0.0 (0-0.7) k/uL Basophils # 0.0 (0-0.2) k/uL PT 10.7 (10.0-12.5) sec INR 1.0 (<1.2) APTT 27.4 (22.0-30.0) sec Sodium (137-145) mmol/L Potassium (3.5-5.1) mmol/L Chloride (98-107) mmol/L Carbon Dioxide (22-30) mmol/L Anion Gap mmol/L BUN (7-17) mg/dL Creatinine (0.52-1.04) mg/dL Est GFR (CKD-EPI)AfAm (>60 ml/min/1.73 sqM) Est GFR (CKD-EPI)NonAf (>60 ml/min/1.73 sqM) Glucose (74-99) mg/dL Calcium (8.4-10.2) mg/dL Magnesium (1.6-2.3) mg/dL Total Bilirubin (0.2-1.3) mg/dL AST (14-36) U/L ALT (4-34) U/L Alkaline Phosphatase (38-126) U/L Troponin I (0.000-0.034) ng/mL Total Protein (6.3-8.2) g/dL Albumin (3.5-5.0) g/dL Urine Color Yellow Urine Appearance Cloudy H (Clear) Urine pH 5.5 (5.0-8.0) Ur Specific [place] 1.033 (1.001-1.035) Urine Protein 1+ H (Negative) Urine Glucose (UA) Negative (Negative) Urine Ketones 1+ H (Negative) Urine Blood Trace H (Negative) Urine Nitrite Negative (Negative) Urine Bilirubin Negative (Negative) Urine Urobilinogen <2.0 (<2.0) mg/dL Ur Leukocyte Esterase Negative (Negative) Urine RBC 2 (0-5) /hpf Urine WBC 5 (0-5) /hpf Ur Squamous Epith Cells 2 (0-4) /hpf Hyaline Casts 20 H (0-2) /lpf Urine Mucus Many H (None) /hpf Influenza Type A (PCR) (Not Detectd) Influenza Type B (PCR) (Not Detectd) RSV (PCR) (Not Detectd) SARS-CoV-2 (PCR) (Not Detectd) 09/18/23 09/18/23 09/18/23 Range/Units 09:32 09:32 09:32 WBC (3.8-10.6) k/uL RBC (3.80-5.40) m/uL Hgb (11.4-16.0) gm/dL Hct (34.0-46.0) % MCV (80.0-100.0) fL MCH (25.0-35.0) pg MCHC (31.0-37.0) g/dL RDW (11.5-15.5) % Plt Count (150-450) k/uL MPV Neutrophils % % Lymphocytes % % Monocytes % % Eosinophils % % Basophils % % Neutrophils # (1.3-7.7) k/uL Lymphocytes # (1.0-4.8) k/uL Monocytes # (0-1.0) k/uL Eosinophils # (0-0.7) k/uL Basophils # (0-0.2) k/uL PT (10.0-12.5) sec INR (<1.2) APTT (22.0-30.0) sec Sodium 133 L (137-145) mmol/L Potassium 3.2 L (3.5-5.1) mmol/L Chloride 100 (98-107) mmol/L Carbon Dioxide 23 (22-30) mmol/L Anion Gap 10 mmol/L BUN 10 (7-17) mg/dL Creatinine 0.49 L (0.52-1.04) mg/dL Est GFR (CKD-EPI)AfAm >90 (>60 ml/min/1.73 sqM) Est GFR (CKD-EPI)NonAf >90 (>60 ml/min/1.73 sqM) Glucose 136 H (74-99) mg/dL Calcium 9.0 (8.4-10.2) mg/dL Magnesium 1.6 (1.6-2.3) mg/dL Total Bilirubin 0.5 (0.2-1.3) mg/dL AST 32 (14-36) U/L ALT 22 (4-34) U/L Alkaline Phosphatase 80 (38-126) U/L Troponin I <0.012 (0.000-0.034) ng/mL Total Protein 7.0 (6.3-8.2) g/dL Albumin 3.9 (3.5-5.0) g/dL Urine Color Urine Appearance (Clear) Urine pH (5.0-8.0) Ur Specific [place] (1.001-1.035) Urine Protein (Negative) Urine Glucose (UA) (Negative) Urine Ketones (Negative) Urine Blood (Negative) Urine Nitrite (Negative) Urine Bilirubin (Negative) Urine Urobilinogen (<2.0) mg/dL Ur Leukocyte Esterase (Negative) Urine RBC (0-5) /hpf Urine WBC (0-5) /hpf Ur Squamous Epith Cells (0-4) /hpf Hyaline Casts (0-2) /lpf Urine Mucus (None) /hpf Influenza Type A (PCR) Not Detected (Not Detectd) Influenza Type B (PCR) Not Detected (Not Detectd) RSV (PCR) Not Detected (Not Detectd) SARS-CoV-2 (PCR) Detected A (Not Detectd) Disposition Clinical Impression: COVID, Mid back pain Disposition: HOME SELF-CARE Condition: Stable Instructions (If sedation given, give patient instructions): Acute Low Back Pain (ED) Additional Instructions: Please return to the nearest emergency department if worsening upper back pain Please residential in place and when asked when able Continue to take Tylenol or Motrin for aches and pains Please return to the nearest emergency department if symptoms worsen or persist Prescriptions: Potassium Chloride ER [K-Dur 20] 20 meq PO DAILY #5 tab Is patient prescribed a controlled substance at d/c from ED?: No Referrals: Federico Santiago DO [Primary Care Provider] - 1-2 days Forms: Area PCPs Time of Disposition: 12:19
[2023-09-18 09:44] LABS: Basophils % (A) 0 %; Eosinophils % (A) 0 %; HCT 38.3 % (34.0-46.0); Lymphocytes # (A) 1.4 k/uL (1.0-4.8); Lymphocytes % (A) 8 %; MCH 33.6 pg (25.0-35.0); MCV 98.8 fL (80.0-100.0); Mean Platelet Volume 7.3; Monocytes # (A) 0.6 k/uL (0-1.0); Monocytes % (A) 4 %; Neutrophils # (A) 14.3 k/uL (1.3-7.7); Neutrophils % (A) 86 %; Platelet Count 282 k/uL (150-450); RBC 3.88 m/uL (3.80-5.40); RDW 12.7 % (11.5-15.5); WBC 16.6 k/uL (3.8-10.6)
[2023-09-18 09:59] LABS: Partial Thromboplastin Time 27.4 sec (22.0-30.0); Prothrombin Time 10.7 sec (10.0-12.5)
[2023-09-18 10:26] LABS: ALT 22 U/L (4-34); AST 32 U/L (14-36); African American GFR (CKD) >90 (>60 ml/min/1.73 sqM); Albumin 3.9 g/dL (3.5-5.0); Alkaline Phosphatase 80 U/L (38-126); Anion Gap 10 mmol/L; Blood Urea Nitrogen 10 mg/dL (7-17); Carbon Dioxide 23 mmol/L (22-30); Chloride 100 mmol/L (98-107); Glucose 136 mg/dL (74-99); Magnesium 1.6 mg/dL (1.6-2.3); Non-African American GFR(CKD) >90 (>60 ml/min/1.73 sqM); Potassium 3.2 mmol/L (3.5-5.1); Sodium 133 mmol/L (137-145); Total Bilirubin 0.5 mg/dL (0.2-1.3)
--- NOTE | 2023-09-18 10:33 | XR ---
EXAMINATION TYPE: XR chest 2V DATE OF EXAM: 09/18/2023 9:50 AM CLINICAL INDICATION:Female, 73 years old with history of back pain; [facility] COMPARISON: 07/15/2021 TECHNIQUE: XR chest 2V Frontal and lateral views of the chest. FINDINGS: Lines/Tubes: EKG leads overlie the chest. No indwelling lines are seen. Lungs/Pleura: Lungs again appear hyperinflated with some flattening of the diaphragm and increased re trosternal clear space, findings suggestive of COPD. Hazy opacity over the mid to lower lungs, attrib uted to overlying soft tissue attenuation. No focal lung consolidation, pleural effusion, or pneumoth orax is detected. Pulmonary vascularity: Unremarkable. Heart/mediastinum: Cardiomediastinal silhouette is unremarkable. Heart is not enlarged. A few aortic calcifications. Musculoskeletal: Mild degenerative changes of the spine and shoulders. No acute osseous finding. Other findings: None IMPRESSION: Changes of COPD/emphysema, without evidence of acute superimposed airspace disease.
[2023-09-18 10:41] LABS: Appearance,Urine Cloudy (Clear); Bilirubin,Urine Negative (Negative); Blood,Urine Trace (Negative); Color,Urine Yellow; Glucose,Urine (UA) Negative (Negative); Hyaline Casts,Urine 20 /lpf (0-2); Ketones,Urine 1+ (Negative); Leukocyte Esterase,Urine Negative (Negative); Mucus,Urine Many /hpf; Nitrite,Urine Negative (Negative); PH, Urine 5.5 (5.0-8.0); Protein,Urine 1+ (Negative); RBC,Urine 2 /hpf (0-5); Specific Gravity,Urine 1.033 (1.001-1.035); Squamous Epithelial Cell,Urine 2 /hpf (0-4); Urobilinogen,Urine <2.0 mg/dL (<2.0); WBC,Urine 5 /hpf (0-5)
--- NOTE | 2023-09-18 11:54 | CT ---
EXAMINATION TYPE: CT chest angio for PE CT DLP: 196.2 mGycm, Automated exposure control for dose reduction was used. DATE OF EXAM: 09/18/2023 11:10 AM COMPARISON: Chest radiograph same day CLINICAL INDICATION:Female, 73 years old with history of Upper back pain; Pt comes to with complai nt of upper back pain for the past 2 weeks. Pt also has complaint of diarrhea for the last 2 days mulugeta ng with body aches and fatigue. TECHNIQUE/CONTRAST: CTA scan of the thorax is performed with IV Contrast, patient injected with 100 ml mL of Isovue 300, MIP images are created and reviewed these are created on a separate workstation.. FINDINGS: Pulmonary Artery: There is no evidence for a filling defect within the pulmonary vasculature to sugge st acute pulmonary embolism. The pulmonary artery is of normal size. Lungs/Pleura: Moderate to severe emphysema changes throughout the lungs. No evidence of focal consoli dation, pleural effusion or pneumothorax. Airway: Large airways are patent. Heart: Heart is within normal limits for size. There is mild coronary artery calcifications. Vasculature: No evidence of aortic aneurysm. The origins of the aortic arch are patent. 4 vessel aort ic arch. Mediastinum: No gross evidence of adenopathy. Musculoskeletal: No acute osseous abnormalities Soft Tissues: Unremarkable. Lower neck: No significant findings. Upper Abdomen: Right renal cyst. IMPRESSION: 1. No evidence of pulmonary embolism. 2. Moderate to severe emphysema.
[2023-09-18 12:06] VITALS: BP 110/76; PULSE 98; RESP 20
[2023-09-18] MEDS ORDERED: POTASSIUM CHLORIDE ER 20 MEQ TAB.ER PO STA (12:16)
[2023-09-18] MEDS ORDERED: LIDOCAINE 5% PATCH TOPICAL SCH (12:30)
== END 2023-09-18 12:47 | disposition home or self-care (01) ==
LOC: EC 08:52
DX: U07.1 COVID-19 (principal); M54.9 Dorsalgia, unspecified; E78.5 Hyperlipidemia, unspecified; K21.9 Gastro-esophageal reflux disease without esophagitis; Z79.899 Other long term (current) drug therapy
CPT/HCPCS: 36415; 93005; 80053; 83735; 84484; 85025; 85610; 85730; 81001; 87636; 71046; 71275; 99284; 96374; J1885; Q9967

== ENCOUNTER 2023-10-06 12:30 | Emergency (ER) | payer MEDICARE, OTHER ==
[2023-10-06 13:36] VITALS: RESP 18
--- NOTE | 2023-10-06 14:48 | XR ---
EXAMINATION TYPE: XR chest 2V DATE OF EXAM: 10/06/2023 2:43 PM COMPARISON: Chest radiographs from 09/18/2023, CTA chest 09/18/2023 TECHNIQUE: XR chest 2V Frontal and lateral views of the chest. CLINICAL INDICATION:Female, 73 years old with history of shortness of breath; FINDINGS: Lungs/Pleura: There is flattening of the diaphragm with increased lucency of the lungs. No evidence o f pneumothorax, pleural effusion or focal consolidation. Pulmonary vascularity: Unremarkable. Heart/mediastinum: Cardiomediastinal silhouette is unremarkable. Atherosclerotic calcifications are seen in the aorta. Musculoskeletal: No acute osseous pathology. Mild degenerative changes of the thoracic spine. IMPRESSION: 1. No acute cardiopulmonary disease process. 2. COPD changes.
[2023-10-06] MEDS ORDERED: MORPHINE SULFATE 2 MG/ML SYRINGE IVP STA (16:21)
--- NOTE | 2023-10-06 16:38 | ED ---
General Adult HPI - General Chief complaint: Shortness of Breath Stated complaint: back pain Time Seen by Provider: 10/06/23 16:08 Source: patient, RN notes reviewed, old records reviewed Mode of arrival: wheelchair Limitations: no limitations - History of Present Illness Initial comments: 73-year-old female presents for reevaluation of upper back pain. Pain is worse with movement. She's had this for 2 months. Patient states she was in the emergency department and had workup including EKG, imaging including CT angiogram of the chest. She does have history of COPD she denies worsening dyspnea. Denies cough or fever. She states she's had this upper back pain worse with movement for the past several weeks. No injury. Patient has had Covid several weeks ago. - Related Data Home Medications Medication Instructions Recorded Confirmed Multivitamin/Iron/Folic Acid 1 tab PO DAILY 05/09/17 10/06/23 [Centrum Complete Multivit Tab] Albuterol Sulfate [Ventolin HFA] 2 puff INHALATION RT-Q4H PRN 12/15/19 10/06/23 Breo (Unknown Strength) 1 puff INHALATION RT-DAILY 10/06/23 10/06/23 Lipitor (Unknown Dose) 1 tab PO HS 10/06/23 10/06/23 Previous Rx's Medication Instructions Recorded Aspirin 81 mg PO DAILY 05/10/17 Docusate [Colace] 100 mg PO BID #60 capsule 10/06/23 HYDROcodone/APAP 5-325MG [[place] 1 tab PO Q6HR PRN #12 tab 10/06/23 5-325] Allergies Allergy/AdvReac Type Severity Reaction Status Date / Time No Known Allergies Allergy Verified 10/06/23 17:33 Review of Systems ROS Statement: Those systems with pertinent positive or pertinent negative responses have been documented in the HPI. ROS Other: All systems not noted in ROS Statement are negative. Past Medical History Past Medical History: COPD, GERD/Reflux, Hyperlipidemia, Renal Disease Additional Past Medical History / Comment(s): Ureteroscopic removal of left ureteral calculus in 2011, diverticulosis History of Any Multi-Drug Resistant Organisms: None Reported Past Surgical History: Cholecystectomy, Hernia Repair, Hysterectomy, Tubal Ligation Additional Past Surgical History / Comment(s): R inguinal hernia repair, kidney stone removal, colonoscopy. Depression. Infection left eye on tuesday12/12/19 Past Anesthesia/Blood Transfusion Reactions: No Reported Reaction Past Psychological History: No Psychological Hx Reported Smoking Status: Never smoker Past Alcohol Use History: None Reported Past Drug Use History: None Reported - Past Family History Mother Family Medical History: Renal Disease Additional Family Medical History / Comment(s): Mother is 90 yrs old. Father Family Medical History: Cancer Additional Family Medical History / Comment(s): Father of lung cancer at the age of 83yrs. General Exam Limitations: no limitations General appearance: alert, in no apparent distress Head exam: Present: atraumatic, normocephalic Eye exam: Present: normal appearance, PERRL ENT exam: Present: normal exam Neck exam: Present: normal inspection. Absent: tenderness, meningismus Respiratory exam: Present: normal lung sounds bilaterally. Absent: respiratory distress, wheezes Cardiovascular Exam: Present: regular rate, normal rhythm GI/Abdominal exam: Present: soft. Absent: distended, tenderness Extremities exam: Present: normal inspection, normal capillary refill Back exam: Absent: tenderness, paraspinal tenderness, vertebral tenderness Neurological exam: Present: alert, oriented X3, CN II-XII intact. Absent: motor sensory deficit Psychiatric exam: Present: normal affect, normal mood Skin exam: Present: warm, dry, intact Course Vital Signs 10/06/23 13:11 Temperature 97.8 F Pulse Rate 99 Respiratory 18 Rate Blood Pressure 146/83 O2 Sat by Pulse 95 Oximetry Medical Decision Making - Medical Decision Making Was pt. sent in by a medical professional or institution (Dr. PA, WREATH MACHINE OPERATOR, urgent care, hospital, or correction...) When possible be specific @ -[No] Did you speak to anyone other than the patient for history (EMS, parent, family, police, friend...)? What history was obtained from this source @ -[No] Did you review nursing and triage notes (agree or disagree)? Why? @ -[I reviewed and agree with nursing and triage notes] Were old charts reviewed (outside hosp., previous admission, EMS record, old EKG, old radiological studies, urgent care reports/EKG's, correction records)? Report findings @ -[No old charts were reviewed] Differential Diagnosis (chest pain, altered mental status, abdominal pain women, abdominal pain men, vaginal bleeding, weakness, fever, dyspnea, syncope, heada angelina, dizziness, GI bleed, back pain, seizure, CVA, palpatations, mental health, musculoskeletal)? @ Differential Chest Pain: Stable Angina, Unstable Angina, STEMI, NSTEMI Aortic Dissection, Pneumothorax, Musculoskeletal, Esophageal Spasm GERD, Cholecystitis, Pancreatitis, Zoster, this is not meant to be an all-inclusive list. EKG interpreted by me (3pts min.). @ Sinus rhythm rate of 67, AL interval 131, QRS duration 95, QTC 419, no ST segment elevation. X-rays interpreted by me (1pt min.). @ Best x-ray shows hyperinflation, no pneumothorax, no acute findings, no focal pneumonia CT interpreted by me (1pt min.). @ -[None done] U/S interpreted by me (1pt. min.). @ -[None done] What testing was considered but not performed or refused? (CT, X-rays, U/S, labs)? Why? @ -[None] What meds were considered but not given or refused? Why? @ -[None] Did you discuss the management of the patient with other professionals (professionals i.e. , PA, WREATH MACHINE OPERATOR, lab, RT, psych nurse, criminal justice social worker, interlibrary loan specialist, teacher, security officer, sample case porter)? Give summary @ -[No] Was smoking cessation discussed for >3mins.? @ -[No] Was critical care preformed (if so, how long)? @ -[No] Were there social determinants of health that impacted care today? How? (Homelessness, low income, unemployed, alcoholism, drug addiction, transportation, low edu. Level, literacy, decrease access to med. care, shelter, rehab)? @ -[No] Was there de-escalation of care discussed even if they declined (Discuss DNR or withdrawal of care, Hospice)? DNR status @ -[No] What co-morbidities impacted this encounter? (DM, HTN, Smoking, COPD, CAD, Cancer, CVA, ARF, Chemo, Hep., AIDS, mental health diagnosis, sleep apnea, morbid obesity)? @ -COPD Was patient admitted / discharged? Hospital course, mention meds given and route, prescriptions, significant lab abnormalities, going to OR and other pertinent info. @ -[73-year-old female with upper back pain. History of COPD. This been an ongoing issue. Patient received full workup recently in the emergency department including cardiac workup and CT angiography of the chest. She continues to have symptoms. Today she has a normal white blood cell count but has an elevated platelet count, uncertain of the etiology of this this is reactive. She has a normal CMP, negative troponin. EKG is sinus without ischemic changes. The patient has an appointment with her primary care provider. I do feel she is stable for discharge at this time with close outpat ient follow-up and return parameters. Her pain is worse with movement and likely musculoskeletal. Undiagnosed new problem with uncertain prognosis? @ -[No] Drug Therapy requiring intensive monitoring for toxicity (Heparin, Nitro, Insulin, Cardizem)? @ -[No] Were any procedures done? @ -[No] Diagnosis/symptom? @ -[Upper back pain Acute, or Chronic, or Acute on Chronic? @ -Chronic Uncomplicated (without systemic symptoms) or Complicated (systemic symptoms)? @ -[default] Side effects of treatment? @ -[No] Exacerbation, Progression, or Severe Exacerbation? @ -[No] Poses a threat to life or bodily function? How? (Chest pain, [place], [place], pneumonia, PE, COPD, DKA, ARF, appy, cholecystitis, CVA, Diverticulitis, Homicidal, Suicidal, threat to staff... and all critical care pts) @ -[Low risk at this time - Lab Data Result diagrams: 10/06/23 17:16 10/06/23 17:16 Lab Results 10/06/23 10/06/23 10/06/23 Range/Units 17:16 17:16 17:16 WBC 9.5 (3.8-10.6) k/uL RBC 4.29 (3.80-5.40) m/uL Hgb 14.0 (11.4-16.0) gm/dL Hct 43.9 (34.0-46.0) % MCV 102.3 H (80.0-100.0) fL MCH 32.7 (25.0-35.0) pg MCHC 31.9 (31.0-37.0) g/dL RDW 13.7 (11.5-15.5) % Plt Count 686 H D (150-450) k/uL MPV 6.8 Neutrophils % 66 % Lymphocytes % 26 % Monocytes % 6 % Eosinophils % 0 % Basophils % 0 % Neutrophils # 6.2 (1.3-7.7) k/uL Lymphocytes # 2.5 (1.0-4.8) k/uL Monocytes # 0.6 (0-1.0) k/uL Eosinophils # 0.0 (0-0.7) k/uL Basophils # 0.0 (0-0.2) k/uL Macrocytosis Slight PT (10.0-12.5) sec INR (<1.2) APTT (22.0-30.0) sec Sodium 136 L (137-145) mmol/L Potassium 5.8 H (3.5-5.1) mmol/L Chloride 98 (98-107) mmol/L Carbon Dioxide 28 (22-30) mmol/L Anion Gap 10 mmol/L BUN 13 (7-17) mg/dL Creatinine 0.51 L (0.52-1.04) mg/dL Est GFR (CKD-EPI)AfAm >90 (>60 ml/min/1.73 sqM) Est GFR (CKD-EPI)NonAf >90 (>60 ml/min/1.73 sqM) Glucose 127 H (74-99) mg/dL Calcium 10.2 (8.4-10.2) mg/dL Magnesium 2.1 (1.6-2.3) mg/dL Total Bilirubin 0.6 (0.2-1.3) mg/dL AST 22 (14-36) U/L ALT 22 (4-34) U/L Alkaline Phosphatase 85 (38-126) U/L Troponin I <0.012 (0.000-0.034) ng/mL Total Protein 8.1 (6.3-8.2) g/dL Albumin 4.7 (3.5-5.0) g/dL 10/06/23 Range/Units 17:16 WBC (3.8-10.6) k/uL RBC (3.80-5.40) m/uL Hgb (11.4-16.0) gm/dL Hct (34.0-46.0) % MCV (80.0-100.0) fL MCH (25.0-35.0) pg MCHC (31.0-37.0) g/dL RDW (11.5-15.5) % Plt Count (150-450) k/uL MPV Neutrophils % % Lymphocytes % % Monocytes % % Eosinophils % % Basophils % % Neutrophils # (1.3-7.7) k/uL Lymphocytes # (1.0-4.8) k/uL Monocytes # (0-1.0) k/uL Eosinophils # (0-0.7) k/uL Basophils # (0-0.2) k/uL Macrocytosis PT 10.2 (10.0-12.5) sec INR 0.9 (<1.2) APTT 24.6 (22.0-30.0) sec Sodium (137-145) mmol/L Potassium (3.5-5.1) mmol/L Chloride (98-107) mmol/L Carbon Dioxide (22-30) mmol/L Anion Gap mmol/L BUN (7-17) mg/dL Creatinine (0.52-1.04) mg/dL Est GFR (CKD-EPI)AfAm (>60 ml/min/1.73 sqM) Est GFR (CKD-EPI)NonAf (>60 ml/min/1.73 sqM) Glucose (74-99) mg/dL Calcium (8.4-10.2) mg/dL Magnesium (1.6-2.3) mg/dL Total Bilirubin (0.2-1.3) mg/dL AST (14-36) U/L ALT (4-34) U/L Alkaline Phosphatase (38-126) U/L Troponin I (0.000-0.034) ng/mL Total Protein (6.3-8.2) g/dL Albumin (3.5-5.0) g/dL Disposition Clinical Impression: Upper back pain Disposition: HOME SELF-CARE Condition: Fair Instructions (If sedation given, give patient instructions): Back Pain (ED) Prescriptions: Docusate [Colace] 100 mg PO BID #60 capsule HYDROcodone/APAP 5-325MG [[place] 5-325] 1 tab PO Q6HR PRN #12 tab PRN Reason: Pain Is patient prescribed a controlled substance at d/c from ED?: No Referrals: Federico Santiago DO [Primary Care Provider] - 1-2 days Time of Disposition: 18:42
[2023-10-06 17:38] LABS: Basophils % (A) 0 %; Eosinophils % (A) 0 %; HCT 43.9 % (34.0-46.0); Lymphocytes # (A) 2.5 k/uL (1.0-4.8); Lymphocytes % (A) 26 %; MCH 32.7 pg (25.0-35.0); MCHC 31.9 g/dL (31.0-37.0); MCV 102.3 fL (80.0-100.0); Macrocytosis Slight; Mean Platelet Volume 6.8; Monocytes # (A) 0.6 k/uL (0-1.0); Monocytes % (A) 6 %; Neutrophils # (A) 6.2 k/uL (1.3-7.7); Neutrophils % (A) 66 %; RBC 4.29 m/uL (3.80-5.40); RDW 13.7 % (11.5-15.5); WBC 9.5 k/uL (3.8-10.6)
[2023-10-06 17:47] LABS: INR 0.9 (<1.2); Partial Thromboplastin Time 24.6 sec (22.0-30.0); Prothrombin Time 10.2 sec (10.0-12.5)
[2023-10-06 17:48] LABS: ALT 22 U/L (4-34); AST 22 U/L (14-36); African American GFR (CKD) >90 (>60 ml/min/1.73 sqM); Albumin 4.7 g/dL (3.5-5.0); Alkaline Phosphatase 85 U/L (38-126); Anion Gap 10 mmol/L; Blood Urea Nitrogen 13 mg/dL (7-17); Calcium 10.2 mg/dL (8.4-10.2); Carbon Dioxide 28 mmol/L (22-30); Chloride 98 mmol/L (98-107); Glucose 127 mg/dL (74-99); Magnesium 2.1 mg/dL (1.6-2.3); Non-African American GFR(CKD) >90 (>60 ml/min/1.73 sqM); Potassium 5.8 mmol/L (3.5-5.1); Sodium 136 mmol/L (137-145); Total Bilirubin 0.6 mg/dL (0.2-1.3); Total Protein 8.1 g/dL (6.3-8.2)
[2023-10-06 17:52] LABS: Platelet Count 686 k/uL (150-450)
[2023-10-06 18:59] VITALS: BP 140/79; PULSE 89; TEMP 98
== END 2023-10-06 19:00 | disposition home or self-care (01) ==
LOC: EC 12:30
DX: M54.6 Pain in thoracic spine (principal); J44.9 Chronic obstructive pulmonary disease, unspecified; Z79.899 Other long term (current) drug therapy
CPT/HCPCS: 36415; 93005; 80053; 83735; 84484; 85025; 85610; 85730; 71046; 99285; 96374; J2270

== ENCOUNTER → 2024-01-25 | Outpatient (CLI) | payer MEDICARE, OTHER ==
--- NOTE | 2024-01-25 21:22 | BD ---
EXAMINATION TYPE: Axial Bone Density DATE OF EXAM: 01/25/2024 CLINICAL HISTORY: 73 years old Female. ICD-10 CODE: G89.29 OTHER CHRONIC PAIN Height: 59.7in Weight: 125lb FRAX RISK QUESTIONS: Secondary Osteoporosis: 3. Menopause before 45: yes RISK FACTORS HISTORY OF: MEDICATIONS: EXAM MEASUREMENTS: Bone mineral densitometry was performed using the [employer] System. Bone mineral density as measured about the Lumbar spine is: ----- L1-L4(G/cm2): 0.881 T Score Values are as follows: ----- L1: -3.3 ----- L2: -3.0 ----- L3: -2.5 ----- L4: -1.5 ----- L1-L4: -2.5 Z Score Values are as follows: ----- L1: -1.3 ----- L2: -1.0 ----- L3: -0.5 ----- L4: 0.5 ----- L1-L4: -0.5 First dexa at [facility] Bone mineral density about the R hip (g/cm2): 0.818 Bone mineral density about the L hip (g/cm2): 0.773 T Score values are as follows: -----R Neck: -1.6 -----L Neck: -2.1 -----R Total: -1.5 -----L Total: -1.9 Z Score values are as follows: -----R Neck: 0.4 -----L Neck: -0.1 -----R Total: 0.3 -----L Total: -0.1 FRAX%s: The graph provided illustrates a 13.1% chance for a major osteoporotic fx and a 3% chance for the hips probability for fx in 10 years time. IMPRESSION: Osteopenia (T Score between -2.5 and -1). There is slightly increased risk of fracture and the patient may be considered for treatment. Re-Screen 2-5 years. NOTE: T-SCORE=SD OF THE YOUNG ADULT MEAN.
--- NOTE | 2024-01-26 09:05 | XR ---
EXAMINATION TYPE: XR thoracic spine 2V DATE OF EXAM: 01/25/2024 COMPARISON: No prior thoracic spine available at this location, chest x-ray 10/06/2023 HISTORY: Compression deformities thoracic spine TECHNIQUE: 3 view thoracic spine FINDINGS: There are 12 thoracic type vertebral bodies. Pedicles are intact. There is a mild wedge def ormity with superior anterior vertebral body height loss of 30% at approximately T8. No retropulsion. This is an old fracture present on the 10/06/2023 comparison chest. Disc heights are preserved. Remai ren vertebral body heights are preserved. IMPRESSION: 1. Old compression deformity of the superior endplate T8 region
== END | disposition home or self-care (01) ==
LOC: RADBDWWP 09:23
PROVIDERS: ATTEND Internal Medicine Critical Care Medicine
DX: M81.0 Age-related osteoporosis without current pathological fracture (principal); M85.89 Other specified disorders of bone density and structure, multiple sites
CPT/HCPCS: 72070; 77080

== ENCOUNTER → 2024-03-19 | Outpatient (CLI) | payer MEDICARE, OTHER ==
--- NOTE | 2024-03-20 12:57 | MM ---
Reason for Exam: Screening (asymptomatic). Last screening mammogram was performed 12 month(s) ago. Patient History: Menarche at age 14. First Full-Term at age 17. Left ovary removed at age 27. Hysterectomy at age 27. Postmenopausal. Mother had breast cancer, age 85. Risk Values: Jenelle 5 year model risk: 3.3%. NCI Lifetime model risk: 8.4%. Prior Study Comparison: 11/25/2014 Bilateral Screening Mammogram, [facility]. 09/21/2018 Bilateral Screening Mammogram, [facility]. 03/16/2023 Bilateral MG 3D screening mammo w/cad, [facility]. Tissue Density: There are scattered areas of fibroglandular density. Findings: Analyzed By CAD. There is no suspicious group of microcalcifications or new suspicious mass in either breast. Overall Assessment: Negative, BI-RAD 1 Management: Screening Mammogram of both breasts in 1 year. . Patient should continue monthly self-breast exams. A clinical breast exam by your physician is recommended on an annual basis. This exam should not preclude additional follow-up of suspicious palpable abnormalities. Note on Jenelle scores and lifetime risk: 1. A Jenelle score greater than 3% is considered moderate risk. If this is the case, consider specialist referral to assess eligibility for a risk reducing agent. 2. If overall lifetime risk for the development of breast cancer is 20% or higher, the patient may qualify for future screening with alternating mammogram and breast MRI. Electronically signed and approved by: Den Barr M.D. Radiologis
== END | disposition home or self-care (01) ==
LOC: RADMAMWWP 07:01
PROVIDERS: ATTEND Family Medicine
DX: Z12.31 Encounter for screening mammogram for malignant neoplasm of breast (principal); Z80.3 Family history of malignant neoplasm of breast; Z78.0 Asymptomatic menopausal state
CPT/HCPCS: 77063; 77067

== ENCOUNTER 2024-05-17 21:44 | Observation (INO) | payer MEDICARE, OTHER ==
--- NOTE | 2024-05-17 22:10 | ED ---
Chest Pain HPI - General Chief Complaint: Chest Pain Stated Complaint: Chest Pressure Time Seen by Provider: 05/17/24 21:57 Source: family Mode of arrival: wheelchair Limitations: no limitations - History of Present Illness Initial Comments: Sue is a pleasant 73-year-old female presents to the emergency department today for evaluation of chest pressure. Patient denies any cardiac history says she has had a stress test a number of years ago no cardiac intervention. Patient states that she was active this morning feeling well but upon returning home and resting she developed some chest pressure the pressure seem to be retrosternal described as a heaviness or pressure in her chest with worsening shortness of breath. Patient states the symptoms were worse when she was up walking around and seem to improve when she was just sitting and relaxing. Patient does have a history of COPD but states this does not feel like COPD she does not feel like she is wheezing or coughing. Patient denies any fevers or chills. - Related Data Home Medications Medication Instructions Recorded Confirmed Multivitamin/Iron/Folic Acid 1 tab PO DAILY 05/09/17 10/06/23 [Centrum Complete Multivit Tab] Albuterol Sulfate [Ventolin HFA] 2 puff INHALATION RT-Q4H PRN 12/15/19 10/06/23 Breo (Unknown Strength) 1 puff INHALATION RT-DAILY 10/06/23 10/06/23 Lipitor (Unknown Dose) 1 tab PO HS 10/06/23 10/06/23 Previous Rx's Medication Instructions Recorded Aspirin 81 mg PO DAILY 05/10/17 Docusate [Colace] 100 mg PO BID #60 capsule 10/06/23 HYDROcodone/APAP 5-325MG [[place] 1 tab PO Q6HR PRN #12 tab 10/06/23 5-325] Allergies Allergy/AdvReac Type Severity Reaction Status Date / Time No Known Allergies Allergy Verified 05/17/24 21:48 Review of Systems ROS Statement: Those systems with pertinent positive or pertinent negative responses have been documented in the HPI. ROS Other: All systems not noted in ROS Statement are negative. EKG Findings - EKG Comments: EKG Findings:: EKG interpreted by me, EKG obtained due to complaint of chest pain, EKG obtained at 2155 rate is 77 rhythm is sinus normal axis, normal intervals ND 138 QRS 93 QTc 421 there are no acute ST elevations or depressions there is no evidence of ischemia or infarction. Past Medical History Past Medical History: COPD, GERD/Reflux, Hyperlipidemia, Renal Disease Additional Past Medical History / Comment(s): Ureteroscopic removal of left ureteral calculus in 2011, diverticulosis History of Any Multi-Drug Resistant Organisms: None Reported Past Surgical History: Cholecystectomy, Hernia Repair, Hysterectomy, Tubal Lig ation Additional Past Surgical History / Comment(s): R inguinal hernia repair, kidney stone removal, colonoscopy. Depression. Infection left eye on tuesday12/12/19 Past Anesthesia/Blood Transfusion Reactions: No Reported Reaction Past Psychological History: No Psychological Hx Reported Smoking Status: Never smoker Past Alcohol Use History: None Reported Past Drug Use History: None Reported - Past Family History Mother Family Medical History: Renal Disease Additional Family Medical History / Comment(s): Mother is 90 yrs old. Father Family Medical History: Cancer Additional Family Medical History / Comment(s): Father of lung cancer at the age of 83yrs. General Exam - General Exam Comments Initial Comments: Physical Exam GENERAL: Patient is well-developed and well-nourished. Patient is nontoxic and well- hydrated and is in no distress. HENT: Normocephalic, Atraumatic. EYES: PERRL, EOMI PULMONARY: Unlabored respirations. No audible rales rhonchi or wheezing was noted. CARDIOVASCULAR: There is a regular rate and rhythm without any murmurs gallops or rubs. ABDOMEN: Soft and nontender with normal bowel sounds. SKIN: Skin is clear with no lesions or rashes and otherwise unremarkable. : Deferred NEUROLOGIC: Patient is alert and oriented x3. Moving all extremities spontaneously MUSCULOSKELETAL: Normal extremities with adequate strength and full range of motion. No lower extremity swelling or edema. No calf tenderness. PSYCHIATRIC: Normal psychiatric evaluation. Limitations: no limitations Course Vital Signs 05/17/24 21:46 Temperature 97.5 F L Pulse Rate 82 Respiratory 18 Rate Blood Pressure 131/72 O2 Sat by Pulse 97 Oximetry Chest Pain MDM - MDM Was pt. sent in by a medical professional or institution (, PA, AMBULATORY CARE NURSE, urgent care, hospital, or [facility]...) When possible be specific @ - Did you speak to anyone other than the patient for history (EMS, parent, family, police, friend...)? What history was obtained from this source @ -Family at bedside Did you review nursing and triage notes (agree or disagree)? Why? @ -I reviewed and agree with nursing and triage notes Were old charts reviewed (outside hosp., previous admission, EMS record, old EKG, old radiological studies, urgent care reports/EKG's, [facility] records)? Report findings @ -No old charts were reviewed Differential Diagnosis (chest pain, altered mental status, abdominal pain women, abdominal pain men, vaginal bleeding, weakness, fever, dyspnea, syncope, headache, dizziness, GI bleed, back pain, seizure, CVA, palpatations, mental health)? @ -Differential Chest Pain: Stable Angina, Unstable Angina, STEMI, NSTEMI Aortic Dissection, Pneumothorax, Musculoskeletal, Esophageal Spasm GERD, Cholecystitis, Pancreatitis, Zoster, this is not meant to be an all-inclusive list. EKG interpreted by me (3pts min.). @ -As above X-rays interpreted by me (1pt min.). @ -Consistent with COPD, no widened mediastinum no pneumothorax CT interpreted by me (1pt min.). @ -None done U/S interpreted by me (1pt. min.). @ -None done What testing was considered but not performed or refused? (CT, X-rays, U/S, labs)? Why? @ -Echo, can be performed upon admission, stress test can be performed upon admission What meds were considered but not given or refused? Why? @ -None Did you discuss the management of the patient with other professionals (professionals i.e. , PA, AMBULATORY CARE NURSE, lab, RT, psych nurse, social media specialist, veterinary livestock inspector, teacher, artillery officer, caseworker protective services)? Give summary @ -No Was smoking cessation discussed for >3mins.? @ -No Was critical care preformed (if so, how long)? @ -No Were there social determinants of health that impacted care today? How? (Homelessness, low income, unemployed, alcoholism, drug addiction, transportation, low edu. Level, literacy, decrease access to med. care, usp, rehab)? @ -No Was there de-escalation of care discussed even if they declined (Discuss DNR or withdrawal of care, Hospice)? DNR status @ -No What co-morbidities impacted this encounter? (DM, HTN, Smoking, COPD, CAD, Cancer, CVA, ARF, Chemo, Hep., AIDS, mental health diagnosis, sleep apnea, morbid obesity)? @ -COPD Was patient admitted / discharged? Hospital course, mention meds given and route, prescriptions, significant lab abnormalities, going to OR and other pe rtinent info. @ -Admit Patient was seen and evaluated history is obtained from patient. 73-year-old female with retrosternal pressure-like chest pain worse with exertion. Labs were unremarkable and initial EKG was nonischemic however given the patient's age and risk factors we will plan to place her in observation for cardiac evaluation. Patient was agreeable with this plan. Undiagnosed new problem with uncertain prognosis? @ -No Drug Therapy requiring intensive monitoring for toxicity (Heparin, Nitro, Insulin, Cardizem)? @ -No Were any procedures done? @ -No Diagnosis/symptom? @ -Chest pain Acute, or Chronic, or Acute on Chronic? @ -Acute Uncomplicated (without systemic symptoms) or Complicated (systemic symptoms)? @ -Default Side effects of treatment? @ -No Exacerbation, Progression, or Severe Exacerbation? @ -No Poses a threat to life or bodily function? How? (Chest pain, [place], [place], pneumonia, PE, COPD, DKA, ARF, appy, cholecystitis, CVA, Diverticulitis, Homicidal, Suicid al, threat to staff... and all critical care pts) @ -Yes Disposition Clinical Impression: Unstable angina pectoris Disposition: ADMITTED IP TO THIS HOSP Condition: Serious Is patient prescribed a controlled substance at d/c from ED?: No Referrals: Federico Santiago DO [Primary Care Provider] - 1-2 days
[2024-05-17 22:22] LABS: Basophils # (A) 0.1 k/uL (0-0.2); Basophils % (A) 1 %; Eosinophils # (A) 0.2 k/uL (0-0.7); Eosinophils % (A) 3 %; HCT 40.5 % (34.0-46.0); HGB 12.7 gm/dL (11.4-16.0); Lymphocytes # (A) 3.6 k/uL (1.0-4.8); Lymphocytes % (A) 45 %; MCH 32.5 pg (25.0-35.0); MCHC 31.3 g/dL (31.0-37.0); MCV 103.8 fL (80.0-100.0); Macrocytosis Slight; Mean Platelet Volume 7.3; Monocytes # (A) 0.6 k/uL (0-1.0); Monocytes % (A) 7 %; Neutrophils # (A) 3.3 k/uL (1.3-7.7); Neutrophils % (A) 41 %; Platelet Count 298 k/uL (150-450); RDW 12.2 % (11.5-15.5); WBC 7.9 k/uL (3.8-10.6)
[2024-05-17 22:34] LABS: INR 0.9 (<1.2); Partial Thromboplastin Time 26.8 sec (22.0-30.0); Prothrombin Time 10.2 sec (10.0-12.5)
[2024-05-17 22:36] LABS: ALT 14 U/L (4-34); AST 25 U/L (14-36); African American GFR (CKD) >90 (>60 ml/min/1.73 sqM); Albumin 4.2 g/dL (3.5-5.0); Alkaline Phosphatase 47 U/L (38-126); Anion Gap 6 mmol/L; Blood Urea Nitrogen 12 mg/dL (7-17); Calcium 9.2 mg/dL (8.4-10.2); Carbon Dioxide 26 mmol/L (22-30); Chloride 108 mmol/L (98-107); Glucose 87 mg/dL (74-99); Magnesium 1.9 mg/dL (1.6-2.3); Non-African American GFR(CKD) 87 (>60 ml/min/1.73 sqM); Potassium 3.8 mmol/L (3.5-5.1); Sodium 140 mmol/L (137-145); Total Bilirubin 0.4 mg/dL (0.2-1.3); Total Protein 6.7 g/dL (6.3-8.2)
[2024-05-17 22:44] LABS: NT-Pro-B-Type Natriuretic Pept 114 pg/mL
[2024-05-17] MEDS ORDERED: NALOXONE 0.4 MG/ML 1 ML VIAL IVP PRN (23:11)
[2024-05-17] MEDS: ASPIRIN 81 MG PO STA (23:16)
--- NOTE | 2024-05-18 00:39 | XR ---
EXAM: XR Chest, 2 Views CLINICAL HISTORY: ITS.REASON XR Reason: Chest Pain TECHNIQUE: Frontal and lateral views of the chest. COMPARISON: No relevant prior studies available. FINDINGS: Lungs: Unremarkable. No consolidation. Pleural space: Trace bilateral pleural effusions. No pneumothorax. Heart: Unremarkable. No cardiomegaly. Mediastinum: Unremarkable. Normal mediastinal contour. Bones/joints: Unremarkable. No acute fracture. IMPRESSION: Trace bilateral pleural effusions.
[2024-05-18 09:22] LABS: Chol/HDL Ratio 2.02 Ratio; LDL Cholesterol,Calculated 59.6 mg/dL (0.0-131.0); VLDL Calculation 11.24 mg/dL (5.00-40.00)
[2024-05-18] MEDS ORDERED: ALBUTEROL NEBULIZED 2.5 MG/3 ML INHALATION PRN (09:55)
[2024-05-18] MEDS ORDERED: CAFFEINE CITRATE 60 MG/3 ML VIAL IV PRN (10:14)
[2024-05-18] MEDS ORDERED: AMINOPHYLLINE 500 MG/20 ML VIAL IV PRN (10:14)
[2024-05-18] MEDS ORDERED: REGADENOSON 0.4 MG/5 ML SYRINGE IV PRN (10:14)
[2024-05-18] MEDS: ASPIRIN 81 MG PO SCH (10:20)
[2024-05-18] MEDS: ACETAMINOPHEN TAB 325 MG TAB PO PRN (10:20)
--- NOTE | 2024-05-18 10:21 | P.CRDCN ---
History of Present Illness History of present illness: HISTORY OF PRESENT ILLNESS: This is a 73-year-old female with a past medical history significant for GERD, diverticulosis, COPD, and occasional nicotine use. Patient does not follow with a video coordinator. We have been asked to see the patient in consultation for chest pain. Patient examined at the bedside. Patient states yesterday afternoon she became to have chest pain. She states the pain was in the middle of her chest. She states the pain was intermittent. She currently denies any chest pain or pressure. Denies SOB. Vital signs are stable. She states she had a cath about 20 years ago and did not require stenting. DIAGNOSTICS: - EKG reveals sinus mechanism with mild ST depression in inferior leads. - Chest xray trace bilateral pleural effusions. - Laboratory data: WBC 7.9. Hemoglobin 12.7. Platelet count 298. Sodium 140. Potassium 3.8. BUN 12. Creatinine 0.70. Troponin negative x 3. proBNP 114 - Current home cardiac medication list is not updated at the time of this dictation - Most recent echocardiogram obtained in April 2017 revealed ejection fraction 55 to 60%, trace MR, trace TR REVIEW OF SYSTEMS: At the time of my exam: CONSTITUTIONAL: Denies fever or chills. HEENT: Denies blurred vision, vision changes, or eye pain. Denies hemoptysis CARDIOVASCULAR: Denies chest pain. Denies orthopnea. Denies PND. Denies palpitations RESPIRATORY: Denies shortness of breath. GASTROINTESTINAL: Denies abdominal pain. Denies nausea or vomiting. HEMATOLOGIC: Denies bleeding disorders. GENITOURINARY: Denies any blood in urine. SKIN: Denies pruitis. Denies rash. PHYSICAL EXAM: VITAL SIGNS: Reviewed. GENERAL: Well-developed in no acute distress. HEENT: Head is normocephalic. Pupils are equal, round. Sclerae anicteric. Mucous membranes of the mouth are moist. Neck supple. No JVD or thyromegaly LUNGS: Respirations even and unlabored. Lungs essentially clear to auscultation bilaterally. HEART: Regular rate and rhythm. S1 and S2 heard. ABDOMEN: Soft. Nondistended. Nontender. EXTREMITIES: Normal range of motion. No clubbing or cyanosis. Peripheral pulses intact. No lower extremity edema NEUROLOGIC: Awake and alert. Oriented x 3. ASSESSMENT: Chest pain History of GERD History of COPD Occasional nicotine use PLAN: An acute coronary event has been ruled out Obtain 2D echo to assess cardiac structure and function Resume home cardiac medications Patient to undergo Lexiscan stress today If negative, the patient may be discharged home today Further recommendations pending patient course Nurse practitioner note has been reviewed by physician. Signing provider agrees with the documented findings, assessment, and plan of care documented by [employer] as a scribe. Past Medical History Past Medical History: COPD, GERD/Reflux, Hyperlipidemia, Renal Disease Additional Past Medical History / Comment(s): Ureteroscopic removal of left ureteral calculus in 2011, diverticulosis History of Any Multi-Drug Resistant Organisms: None Reported Past Surgical History: Cholecystectomy, Hernia Repair, Hysterectomy, Tubal Ligation Additional Past Surgical History / Comment(s): R inguinal hernia repair, kidney stone removal, colonoscopy. Depression. Infection left eye on tuesday12/12/19 Past Anesthesia/Blood Transfusion Reactions: No Reported Reaction Past Psychological History: No Psychological Hx Reported Smoking Status: Never smoker Past Alcohol Use History: None Reported Past Drug Use History: None Reported - Past Family History Mother Family Medical History: Renal Disease Additional Family Medical History / Comment(s): Mother is 90 yrs old. Father Family Medical History: Cancer Additional Family Medical History / Comment(s): Father of lung cancer at the age of 83yrs. Medications and Allergies Home Medications Medication Instructions Recorded Confirmed Type Albuterol Sulfate [Ventolin HFA] 2 puff INHALATION RT-Q4H PRN 12/15/19 05/18/24 History Aspirin 162 mg PO DAILY 05/18/24 05/18/24 History Atorvastatin [Lipitor] 20 mg PO DIRECTED 05/18/24 05/18/24 History Calcium Carbonate [Calcium] 600 mg PO DAILY 05/18/24 05/18/24 History Cholecalciferol (Vitamin D3) 75 mcg PO DAILY 05/18/24 05/18/24 History [Vitamin D3 (3000 Iu)] Fluticasone/Umeclidin/Vilanter 1 puff INHALATION RT-DAILY 05/18/24 05/18/24 History [Trelegy Ellipta 100-62.5-25] Allergies Allergy/AdvReac Type Severity Reaction Status Date / Time No Known Allergies Allergy Verified 05/18/24 08:08 Physical Exam Vitals: Vital Signs Temp Pulse Resp BP Pulse Ox 05/18/24 06:08 72 18 116/70 99 05/18/24 04:00 71 18 112/62 99 05/18/24 02:00 85 18 122/72 99 05/18/24 00:00 72 18 129/72 100 05/17/24 21:46 97.5 F L 82 18 131/72 97 Intake and Output 05/17/24 05/18/24 05/18/24 22:59 06:59 14:59 Other: Weight 54.431 kg Results 05/17/24 22:11 05/17/24 22:11 Cardiac Enzymes 05/17/24 05/17/24 05/17/24 Range/Units 22:11 22:11 23:50 AST 25 (14-36) U/L Troponin I <0.012 <0.012 (0.000-0.034) ng/mL 05/18/24 Range/Units 05:05 AST (14-36) U/L Troponin I <0.012 (0.000-0.034) ng/mL Coagulation 05/17/24 Range/Units 22:11 PT 10.2 (10.0-12.5) sec APTT 26.8 (22.0-30.0) sec CBC 05/17/24 Range/Units 22:11 WBC 7.9 (3.8-10.6) k/uL RBC 3.90 (3.80-5.40) m/uL Hgb 12.7 (11.4-16.0) gm/dL Hct 40.5 (34.0-46.0) % Plt Count 298 (150-450) k/uL Comprehensive Metabolic Panel 05/17/24 Range/Units 22:11 Sodium 140 (137-145) mmol/L Potassium 3.8 (3.5-5.1) mmol/L Chloride 108 H (98-107) mmol/L Carbon Dioxide 26 (22-30) mmol/L BUN 12 (7-17) mg/dL Creatinine 0.70 (0.52-1.04) mg/dL Glucose 87 (74-99) mg/dL Calcium 9.2 (8.4-10.2) mg/dL AST 25 (14-36) U/L ALT 14 (4-34) U/L Alkaline Phosphatase 47 (38-126) U/L Total Protein 6.7 (6.3-8.2) g/dL Albumin 4.2 (3.5-5.0) g/dL Current Medications Generic Name Dose Route Start Last Admin Trade Name Freq PRN Reason Stop Dose Admin Aspirin 81 mg 05/18/24 09:00 Aspirin 81 Mg PO DAILY NOY Naloxone HCl 0.2 mg 05/17/24 23:11 Naloxone 0.4 Mg/Ml 1 Ml Vial IVP Q2M PRN Opioid Reversal Intake and Output 05/17/24 05/18/24 05/18/24 22:59 06:59 14:59 Other: Weight 54.431 kg 05/17/24 22:11 05/17/24 22:11
[2024-05-18] MEDS: SYMBICORT 80-4.5 MCG INHALER INHALATION SCH (11:01)
[2024-05-18] MEDS: IPRATROPIUM 0.5 MG/2.5 ML NEBU INHALATION SCH (11:02)
--- NOTE | 2024-05-18 13:13 | CA ---
Lexiscan Nuclear Stress Test Report Name: Sue Walker Exam Date: 05/18/2024 11:46 Exam Location: [facility] Stress Ht (in): 60 Wt (lb): 120 BSA: 1.50 Ordering Phys: Della Vieira Referring Phys: YOSI VELASQUEZ Technologist: Ole Hernandez Age: 73 Gender: F : 1950 Procedure CPT: Indications: Reflex order-Stress test ICD-10 Codes: Patient History: CHEST PAIN, DIFFICULTY IN BREATHING, FAMILY HX (MOM), PRIOR HEART CATH, COPH Medications: Meds past 24 hrs: Pretest Chest Pain: STRESS TEST Lexiscan Protocol Exercise Duration (min:sec): 02:[address] Depressions (mm): Angina Score: Velazco Score: Resting HR (bpm): 81 Peak HR (bpm): 118 Resting BP (mmHg): 137 / 72 Peak BP (mmHg): 145 / 74 MPHR: 148 Target HR: 126 % MPHR: 80 METS: 1.0 Total Dose: Peak Dose: Atropine: Double Product: 44367 BP Response: Stress Termination: INFUSION COMPLETE Stress Symptoms: NO SYMPTOMS Stress Summary: ECG ANALYSIS Resting ECG: Stress ECG: CONCLUSIONS Nondiagnostic electrocardiogram stress testing Dr. Yosi Velasquez MD (Electronically Signed) Final Date: 18 May 2024 13:12
[2024-05-18 14:34] VITALS: BP 113/75; PULSE 78; RESP 16; TEMP 98.3
--- NOTE | 2024-05-18 14:43 | NM ---
EXAMINATION TYPE: NM stress lexiscan cardiolite DATE OF EXAM: 05/18/2024 COMPARISON: NONE HISTORY: Chest pain TECHNIQUE: After the intravenous administration of 10.6 mCi Tc 99m Sestamibi - Cardiolite resting SP ECT images acquired 50 minutes post injection. At peak stress 25.6 mCi Tc 99m Sestamibi - Stress images obtained 30 minutes post injection The patient was stressed with 0.4mg Lexiscan. FINDINGS: No fixed defects are evident No reversible stress defects on Spect images Wall motion is normal Ejection fraction is calculated to be 79 %. IMPRESSION: 1. No stress-induced ischemic changes.
[2024-05-18] MEDS ORDERED: ATORVASTATIN 20 MG TAB PO SCH (21:00)
[2024-05-19] MEDS ORDERED: NON FORMULARY DRUG (Fluticasone/Umeclidin/Vilanter [Trelegy Ellipta 100-62.5-25] 1 EACH Bl INHALATION SCH (08:00)
--- NOTE | 2024-05-19 10:39 | P.HPIM ---
History of Present Illness H&P Date: 05/18/24 History of present illness; patient is a 73-year-old lady with past medical significant for COPD, hyperlipidemia presented to ER because of chest pain. Patient stated that she was all right last night when started experiencing chest pressure. Stated stated that she had been working all day was very active throughout the day but on returning home she started experiencing chest pressure that was central in location, nonradiating, aggravated by exertion and relieved by sitting and relaxing. There was shortness of breath associated with this chest pressure. There was no current palpitation. Denies any nausea, vomiting, abdominal pain. There was no complaint of orthopnea or PND. There was no complaint of lightheaded or dizziness. Because of chest pressure, patient came to the ER Initial lab work done in the ER showed WBC 7.9, hemoglobin 12.7, platelet count 298, sodium 140, potassium 3.8, BUN 12, creatinine 0.70, troponin 0.012, proBNP 114 EKG done in the ER showed heart rate of77 , no ST segment elevation or depression seen, no T-wave inversions seen. Chest x-ray done in the ER showed trace bilateral pleural effusions Patient admitted to internal medicine service REVIEW OF SYSTEMS: CONSTITUTIONAL: No fever, no malaise, no fatigue. HEENT: No recent visual problems or hearing problems. Denied any sore throat. CARDIOVASCULAR: As mentioned HPI PULMONARY: As mentioned HPI GASTROINTESTINAL: No diarrhea, no nausea, no vomiting, no abdominal pain. NEUROLOGICAL: No headaches, no weakness, no numbness. HEMATOLOGICAL: Denies any bleeding or petechiae. GENITOURINARY: Denies any burning micturition, frequency, or urgency. MUSCULOSKELETAL/RHEUMATOLOGICAL: Denies any joint pain, swelling, or any muscle pain. ENDOCRINE: Denies any polyuria or polydipsia. The rest of the 14-point review of systems is negative. PHYSICAL EXAMINATION: GENERAL: The patient is alert and oriented x3, not in any acute distress. Well developed, well nourished. HEENT: Pupils are round and equally reacting to light. EOMI. No scleral icterus. No conjunctival pallor. Normocephalic, atraumatic. No pharyngeal erythema. No thyromegaly. CARDIOVASCULAR: S1 and S2 present. No murmurs, rubs, or gallops. PULMONARY: Chest is clear to auscultation, no wheezing or crackles. ABDOMEN: Soft, nontender, nondistended, normoactive bowel sounds. No palpable organomegaly. MUSCULOSKELETAL: No joint swelling or deformity. EXTREMITIES: No cyanosis, clubbing, or pedal edema. NEUROLOGICAL: Gross neurological examination did not reveal any focal deficits. SKIN: No rashes. Assessment and plan Chest pain, rule out acute coronary syndrome COPD Hyperlipidemia Monitor vital signs Monitor CBC Monitor CMP Continue telemetry monitoring Trend troponins. Order D-dimer Ordered 2D echo Resume breathing treatments Consider cardiology Labs and medication were reviewed.. Continue same treatment. Continue with symptomatic treatment. Resume home medication. Monitor labs and vitals. DVT and GI prophylaxis. Further recommendations as per clinical course of the patient Dictation was produced using Rule. dictation software. please excuse any grammatical, word or spelling errors. Past Medical History Past Medical History: COPD, GERD/Reflux, Hyperlipidemia, Renal Disease Additional Past Medical History / Comment(s): Ureteroscopic removal of left ureteral calculus in 2011, diverticulosis History of Any Multi-Drug Resistant Organisms: None Reported Past Surgical History: Cholecystectomy, Hernia Repair, Hysterectomy, Tubal Ligation Additional Past Surgical History / Comment(s): R inguinal hernia repair, kidney stone removal, colonoscopy. Depression. Infection left eye on tuesday12/12/19 Past Anesthesia/Blood Transfusion Reactions: No Reported Reaction Past Psychological History: No Psychological Hx Reported Smoking Status: Never smoker Past Alcohol Use History: None Reported Past Drug Use History: None Reported - Past Family History Mother Family Medical History: Renal Disease Additional Family Medical History / Comment(s): Mother is 90 yrs old. Father Family Medical History: Cancer Additional Family Medical History / Comment(s): Father of lung cancer at the age of 83yrs. Medications and Allergies Home Medications Medication Instructions Recorded Confirmed Type Albuterol Sulfate [Ventolin HFA] 2 puff INHALATION RT-Q4H PRN 12/15/19 05/18/24 History Aspirin 162 mg PO DAILY 05/18/24 05/18/24 History Atorvastatin [Lipitor] 20 mg PO DIRECTED 05/18/24 05/18/24 History Calcium Carbonate [Calcium] 600 mg PO DAILY 05/18/24 05/18/24 History Cholecalciferol (Vitamin D3) 75 mcg PO DAILY 05/18/24 05/18/24 History [Vitamin D3 (3000 Iu)] Fluticasone/Umeclidin/Vilanter 1 puff INHALATION RT-DAILY 05/18/24 05/18/24 History [Trelegy Ellipta 100-62.5-25] Allergies Allergy/AdvReac Type Severity Reaction Status Date / Time No Known Allergies Allergy Verified 05/18/24 08:08 Physical Exam Vitals: Vital Signs Temp Pulse Pulse Resp BP BP Pulse Ox 05/18/24 07:30 98 F 81 14 105/68 100 05/18/24 06:08 72 18 116/70 99 05/18/24 04:00 71 18 112/62 99 05/18/24 02:00 85 18 122/72 99 05/18/24 00:00 72 18 129/72 100 05/17/24 21:46 97.5 F L 82 18 131/72 97 Intake and Output 05/17/24 05/18/24 05/18/24 22:59 06:59 14:59 Other: Weight 54.431 kg Results CBC & Chem 7: 05/17/24 22:11 05/17/24 22:11 Labs: Abnormal Lab Results - Last 24 Hours (Table) 05/17/24 05/17/24 05/18/24 Range/Units 22:11 22:11 05:05 MCV 103.8 H (80.0-100.0) fL Chloride 108 H (98-107) mmol/L HDL Cholesterol 69.20 H (40.00-60.00) mg/dL
--- NOTE | 2024-05-19 10:40 | P.DS ---
Providers Date of admission: 05/17/24 23:14 Expected date of discharge: 05/19/24 Attending physician: Jeri Ramesh Primary care physician: Federico Santiago [facility] Course: Discharge diagnoses; Chest pain, acute coronary syndrome ruled out COPD Hyperlipidemia Hospital course; patient is a 73-year-old lady with past medical significant for COPD, hyperlipidemia presented to ER because of chest pain. Patient stated that she was all right last night when started experiencing chest pressure. Stated stated that she had been working all day was very active throughout the day but on returning home she started experiencing chest pressure that was central in location, nonradiating, aggravated by exertion and relieved by sitting and relaxing. There was shortness of breath associated with this chest pressure. There was no current palpitation. Denies any nausea, vomiting, abdominal pain. There was no complaint of orthopnea or PND. There was no complaint of lightheaded or dizziness. Because of chest pressure, patient came to the ER Initial lab work done in the ER showed WBC 7.9, hemoglobin 12.7, platelet count 298, sodium 140, potassium 3.8, BUN 12, creatinine 0.70, troponin 0.012, proBNP 114 EKG done in the ER showed heart rate of77 , no ST segment elevation or depression seen, no T-wave inversions seen. Chest x-ray done in the ER showed trace bilateral pleural effusions Patient admitted to internal medicine service Patient was o evaluated by cardiology and they ordered Lexiscan, Lexiscan was negative for any ischemia. Patient was cleared for discharge by cardiology PHYSICAL EXAMINATION: GENERAL: The patient is alert and oriented x3, not in any acute distress. Well developed, well nourished. HEENT: Pupils are round and equally reacting to light. EOMI. No scleral icterus. No conjunctival pallor. Normocephalic, atraumatic. No pharyngeal erythema. No thyromegaly. CARDIOVASCULAR: S1 and S2 present. No murmurs, rubs, or gallops. PULMONARY: Chest is clear to auscultation, no wheezing or crackles. ABDOMEN: Soft, nontender, nondistended, normoactive bowel sounds. No palpable organomegaly. MUSCULOSKELETAL: No joint swelling or deformity. EXTREMITIES: No cyanosis, clubbing, or pedal edema. NEUROLOGICAL: Gross neurological examination did not reveal any focal deficits. SKIN: No rashes. Dictation was produced using dragon dictation software. please excuse any grammatical, word or spelling errors. Patient Condition at Discharge: Fair Plan - Discharge Summary Discharge Rx Participant: Yes New Discharge Prescriptions: Continue Albuterol Sulfate [Ventolin HFA] 2 puff INHALATION RT-Q4H PRN PRN Reason: Shortness Of Breath Fluticasone/Umeclidin/Vilanter [Trelegy Ellipta 100-62.5-25] 1 puff INHALATION RT-DAILY Cholecalciferol (Vitamin D3) [Vitamin D3 (3000 Iu)] 75 mcg PO DAILY Aspirin 162 mg PO DAILY Calcium Carbonate [Calcium] 600 mg PO DAILY Atorvastatin [Lipitor] 20 mg PO DIRECTED Discharge Medication List Albuterol Sulfate [Ventolin HFA] 2 puff INHALATION RT-Q4H PRN 12/15/19 [History] Aspirin 162 mg PO DAILY 05/18/24 [History] Atorvastatin [Lipitor] 20 mg PO DIRECTED 05/18/24 [History] Calcium Carbonate [Calcium] 600 mg PO DAILY 05/18/24 [History] Cholecalciferol (Vitamin D3) [Vitamin D3 (3000 Iu)] 75 mcg PO DAILY 05/18/24 [History] Fluticasone/Umeclidin/Vilanter [Trelegy Ellipta 100-62.5-25] 1 puff INHALATION RT-DAILY 05/18/24 [History] Follow up Appointment(s)/Referral(s): Federico Santiago DO [Primary Care Provider] - 1-2 days Discharge Disposition: HOME SELF-CARE
== END 2024-05-18 15:17 | disposition home or self-care (01) ==
LOC: EC 21:44 → 6NMEDSUR 23:14
PROVIDERS: ADMIT Hospitalist; ATTEND Hospitalist
DX: R07.89 Other chest pain (principal); J44.9 Chronic obstructive pulmonary disease, unspecified; E78.5 Hyperlipidemia, unspecified; K21.9 Gastro-esophageal reflux disease without esophagitis; F32.A Depression, unspecified; Z72.0 Tobacco use; Z79.51 Long term (current) use of inhaled steroids; Z79.82 Long term (current) use of aspirin; Z79.899 Other long term (current) drug therapy
CPT/HCPCS: 99285; 36415; 94760; 93005; 93017; 85379; 83880; 80061; 80053; 83690; 83735; 84484 ×2; 85025; 85610; 85730; 71046; 78452; G0378 ×2; A9500; J2785

== ENCOUNTER → 2025-03-20 | Outpatient (CLI) | payer MEDICARE, OTHER ==
--- NOTE | 2025-03-20 07:59 | MM ---
Reason for Exam: Screening (asymptomatic). Last screening mammogram was performed 12 month(s) ago. Patient History: Menarche at age 14. First Full-Term at age 17. Left ovary removed at age 27. Hysterectomy at age 27. Postmenopausal. Mother had breast cancer, age 85. Risk Values: Jenelle 5 year model risk: 3.3%. NCI Lifetime model risk: 7.9%. Prior Study Comparison: 09/21/2018 Bilateral Screening Mammogram, [facility]. 03/16/2023 Bilateral MG 3D screening mammo w/cad, [facility]. 03/19/2024 Bilateral MG 3D screening mammo w/cad, [facility]. Tissue Density: There are scattered areas of fibroglandular density. Findings: Analyzed By CAD. There is no suspicious group of microcalcifications or new suspicious mass in either breast. Overall Assessment: Negative, BI-RAD 1 Management: Screening Mammogram of both breasts in 1 year. . Patient should continue monthly self-breast exams. A clinical breast exam by your physician is recommended on an annual basis. This exam should not preclude additional follow-up of suspicious palpable abnormalities. Note on Jenelle scores and lifetime risk: 1. A Jenelle score greater than 3% is considered moderate risk. If this is the case, consider specialist referral to assess eligibility for a risk reducing agent. 2. If overall lifetime risk for the development of breast cancer is 20% or higher, the patient may qualify for future screening with alternating mammogram and breast MRI. [facility], , 03/20/2025 7:56 AM. Electronically signed and approved by: Den Barr M.D. Radiolog[facility]
== END | disposition home or self-care (01) ==
LOC: RADMAMWWP 07:22
PROVIDERS: ATTEND Family Medicine
DX: Z12.31 Encounter for screening mammogram for malignant neoplasm of breast (principal); R92.323 Mammographic fibroglandular density, bilateral breasts; Z78.0 Asymptomatic menopausal state; Z80.3 Family history of malignant neoplasm of breast
CPT/HCPCS: 77063; 77067